=== PATIENT | female | born 1965 | race Caucasian/White ===

== ENCOUNTER 2018-07-10 17:32 | Emergency (ER) | payer MEDICARE, OTHER ==
[~2018-07-10] VITALS: Ht 167.6 cm; Wt 90.7 kg
[2018-07-10] MEDS ORDERED: ONDANSETRON 4 MG/2 ML (SDV) Z0FRAN ONE (17:56)
[2018-07-10] MEDS ORDERED: cloNIDine 0.1 MG (CATAPRES) TAB PO STA (18:04)
--- NOTE | 2018-07-10 18:06 | ED General ---
General Chief Complaint: Glucose Problems Stated Complaint: HYPOGYLCEMIA; DIALYSIS History of Present Illness Date Seen by Provider: Jul 10, 2018 Time Seen by Provider: 17:50 This is a 52-year-old female with a history of hypertension, end-stage renal disease on hemodialysis Saturday and Saturday with the last session being yesterday, also postop day #2 status post right upper extremity dialysis fistula revision, brought to the emergency department by EMS for hypoglycemia. She was on the floor when they found her but it appeared that she had slid out of her chair and patient denies any pain or suspected injury at this time. Accu -Chek was "low" and patient was administered D50, blood glucose at recheck was 110 per EMS. Upon arrival in the emergency department repeat Accu-Chek is 40 and she is given another amp of D50. Her only symptom is nausea, she denies headache or chest pain or difficulty breathing although she is wearing nasal cannula oxygen upon arrival as well. Patient has a chronic right lower extremity amputation, no focal weakness, numbness, or tingling, no visual change. Patient does remember eating an egg for breakfast, otherwise she is not aware of why her blood glucose would be so low today. She was significantly hypertensive as well according to EMS, she is wearing a clonidine patch on her left shoulder however it was supposed to have been changed today. We removed the patch upon arrival. She feels that her surgical site is improving appropriately, the left chest wall dialysis port is not bothering her. Allergies and Home Medications Allergies Coded Allergies: Penicillins (Verified Allergy, Severe, HIVES, 07/10/18) Patient Home Medication List Home Medication List Reviewed: Yes Review of Systems Review of Systems Constitutional: no symptoms reported EENTM: no symptoms reported Respiratory: no symptoms reported Cardiovascular: no symptoms reported Gastrointestinal: see HPI Genitourinary: no symptoms reported Musculoskeletal: no symptoms reported Skin: no symptoms reported Psychiatric/Neurological: No Symptoms Reported Hematologic/Lymphatic: No Symptoms Reported Immunological/Allergic: no symptoms reported Past Pqkwnkz-Bbvana-Pzuevo Hx Patient Social History Recent Foreign Travel: No Contact w/Someone Who Travel: No Physical Exam Vital Signs Vital Signs - First Documented 07/10/18 17:50 Temp 97.2 Pulse 92 Resp 16 B/P (MAP) 220/94 (136) Pulse Ox 100 O2 Delivery Room Air Capillary Refill : Height, Weight, BMI Height: '" Weight: lbs. oz. kg; BMI Method: General Appearance: No Apparent Distress Eyes: Bilateral Eye PERRL, Bilateral Eye EOMI HEENT: Other (edentulous, moist mucous membranes) Neck: Non Tender, Supple Respiratory: Lungs Clear, Other (left chest wall port without inflammatory change other than minimally tender, no drainage, no fluctuance) Cardiovascular: Regular Rate, Rhythm, Normal Peripheral Pulses (right femoral pulses intact and symmetrical with contralateral side) Gastrointestinal: Non Tender, Soft Back: No Vertebral Tenderness Extremity: Other (right upper extremity surgical site still with Steri-Strips in place, no surrounding inflammatory changes, no significant tenderness) Neurologic/Psychiatric: Alert, Oriented x3, No Motor/Sensory Deficits, cut off tender glass II- XII Norm as Tested Skin: Cool, Damp Progress/Results/Core Measures Suspected Sepsis SIRS Temperature: Pulse: Respiratory Rate: Laboratory Tests 07/10/18 17:56: White Blood Count 7.3 Blood Pressure / Mean: Laboratory Tests 07/10/18 17:56: Creatinine 4.65H, Platelet Count 286, Total Bilirubin 0.3 Results/Orders Lab Results Laboratory Tests Test 07/10/18 17:56 07/10/18 18:01 07/10/18 18:42 Range/Units White Blood Count 7.3 4.3-11.0 10^3/uL Red Blood Count 4.13 L 4.35-5.85 10^6/uL Hemoglobin 12.5 11.5-16.0 G/DL Hematocrit 40 35-52 % Mean Corpuscular Volume 97 80-99 FL Mean Corpuscular Hemoglobin 30 25-34 PG Mean Corpuscular Hemoglobin Concent 31 L 32-36 G/DL Red Cell Distribution Width 13.8 10.0-14.5 % Platelet Count 286 130-400 10^3/uL Mean Platelet Volume 9.1 7.4-10.4 FL Neutrophils (%) (Auto) 73 42-75 % Lymphocytes (%) (Auto) 21 12-44 % Monocytes (%) (Auto) 6 0-12 % Eosinophils (%) (Auto) 0 0-10 % Basophils (%) (Auto) 0 0-10 % Neutrophils # (Auto) 5.3 1.8-7.8 X 10^3 Lymphocytes # (Auto) 1.5 1.0-4.0 X 10^3 Monocytes # (Auto) 0.4 0.0-1.0 X 10^3 Eosinophils # (Auto) 0.0 0.0-0.3 10^3/uL Basophils # (Auto) 0.0 0.0-0.1 10^3/uL Sodium Level 140 135-145 MMOL/L Potassium Level 5.4 H 3.6-5.0 MMOL/L Chloride Level 98 98-107 MMOL/L Carbon Dioxide Level 23 21-32 MMOL/L Anion Gap 19 H 5-14 MMOL/L Blood Urea Nitrogen 36 H 7-18 MG/DL Creatinine 4.65 H 0.60-1.30 MG/DL Estimat Glomerular Filtration Rate 10 BUN/Creatinine Ratio 8 Glucose Level 57 *L 70-105 MG/DL Calcium Level 9.4 8.5-10.1 MG/DL Corrected Calcium 9.0 8.5-10.1 MG/DL Magnesium Level 2.1 1.8-2.4 MG/DL Total Bilirubin 0.3 0.1-1.0 MG/DL Aspartate Amino Transf (AST/SGOT) 16 5-34 U/L Alanine Aminotransferase (ALT/SGPT) < 5 0-55 U/L Alkaline Phosphatase 124 40-136 U/L Troponin T 49 H <=10 NG/L Total Protein 8.1 6.4-8.2 GM/DL Albumin 4.5 3.2-4.5 GM/DL Glucometer 44 *L 87 70-110 MG/DL My Orders Orders - TRISHA MATAMOROS T DO Ekg Tracing (07/10/18 18:01) Cbc With Automated Diff (07/10/18 18:01) Comprehensive Metabolic Panel (07/10/18 18:01) Magnesium (07/10/18 18:01) Chest 1 View Ap/Pa Only (07/10/18 18:01) D50w (Emergency) Syringe (Dextrose 50% 5 (07/10/18 18:15) Clonidine Tablet (Catapres Tablet) (07/10/18 18:04) Labetalol Injection (Normodyne Injection (07/10/18 18:15) Ondansetron Injection (Zofran Injectio (07/10/18 18:30) Medications Given in ED Current Medications Medications Dose Ordered Sig/Jose M Route Start Time Stop Time Status Last Admin Dose Admin Dextrose 25 ml ONCE ONCE IV 07/10/18 18:15 07/10/18 18:16 DC 07/10/18 18:05 25 ML Labetalol HCl 10 mg ONCE ONCE IV 07/10/18 18:15 07/10/18 18:16 DC 07/10/18 18:12 10 MG Ondansetron HCl 4 mg ONCE ONCE IVP 07/10/18 18:30 07/10/18 18:31 DC 07/10/18 17:58 4 MG Vital Signs/I&O 07/10/18 07/10/18 17:50 19:00 Temp 97.2 Pulse 92 78 Resp 16 17 B/P (MAP) 220/94 (136) 178/59 (98) Pulse Ox 100 99 O2 Delivery Room Air Room Air Capillary Refill : Progress Note #1: Progress Note This is a 52-year-old female with hypertension and end-stage renal disease on hemodialysis also postop day #2 status post right upper extremity dialysis fistula revision here for hypoglycemia and hypertension. I will give an oral dose of clonidine and a low-dose of IV labetalol. We will evaluate for physiologic stressor as an etiology of her hypoglycemia including sepsis or AMI. She is grossly neurologically intact, denies a headache and there is no sign of head trauma, we will defer head CT at this time. Patient will require admission given the recurrent drop in blood glucose and for stabilization of blood pressure. Progress Note #2: Progress Note Repeat Accu-Chek was in the 80s, patient was given peanut butter and crackers. We will continue to monitor. I recommended admission to patient and family, they request transfer to [facility] as patient has been admitted there multiple times in the past. I have paged their transfer line at about 7:00 PM and await callback. Progress Note #3: Progress Note Patient accepted for transfer to [facility] by hospitalist on-call Dr. Colon just prior to 7:45 PM. ECG EKG : Comment 1525: Normal sinus rhythm rate of 90. Nonspecific T-wave flattening in lead aVL. Critical Care Note Critical Care Start Time: 18:15 Stop Time: 18:50 Total Time (minutes) 35 Progress Rectal care time is exclusive of time spent on separately billable procedures. Rest to multiple organ systems from hypoglycemia and hypertensive urgency. Administration of intravenous vasoactive medications, interpretation of lab results, imaging, EKG, frequent reassessments of clinical status, blood pressure , blood glucose. Departure Impression Primary Impression: Hypoglycemia Additional Impressions: Hypertensive urgency ESRD (end stage renal disease) on dialysis Elevated troponin Disposition: 02 XFER SHT-TRM HOSP Condition: Stable (guarded) Transfer Time Spoke to Accepting Phy: 19:45 Transfer Facility: [facility], accepted by Dr. Colon Method of Transfer: EMS Departure-Patient Inst. Referrals: NO,LOCAL PHYSICIAN (PCP) Primary Care Physician TRISHA MATAMOROS DO Jul 10, 2018 18:06
[2018-07-10] MEDS ORDERED: DEXTROSE 50% 50 ML (IMS) SYR IV ONE (18:15)
[2018-07-10] MEDS ORDERED: LABETALOL HCL 20 MG/4 ML VIAL IV ONE (18:15)
[2018-07-10 18:20] LABS: HEMATOCRIT 40 % (35-52); HEMOGLOBIN 12.5 G/DL (11.5-16.0); MEAN CORPUSCULAR HEMOGLOBIN 30 PG (25-34); MEAN CORPUSCULAR VOLUME 97 FL (80-99); WHITE BLOOD COUNT 7.3 10^3/uL (4.3-11.0)
[2018-07-10 18:21] LABS: BASOPHILS % (AUTO) 0 % (0-10); EOSINOPHILS % (AUTO) 0 % (0-10); LYMPHOCYTES # (AUTO) 1.5 X 10^3 (1.0-4.0); LYMPHOCYTES % (AUTO) 21 % (12-44); MEAN CORPUSCULAR HGB CONC 31 G/DL (32-36); MEAN PLATELET VOLUME 9.1 FL (7.4-10.4); MONOCYTES # (AUTO) 0.4 X 10^3 (0.0-1.0); MONOCYTES % (AUTO) 6 % (0-12); NEUTROPHILS # (AUTO) 5.3 X 10^3 (1.8-7.8); NEUTROPHILS % (AUTO) 73 % (42-75); PLATELET COUNT 286 10^3/uL (130-400); RED CELL DISTRIBUTION WIDTH 13.8 % (10.0-14.5)
[2018-07-10] MEDS ORDERED: INSU100I14 (18:25)
[2018-07-10] MEDS ORDERED: TORS100T4 (18:25)
[2018-07-10] MEDS ORDERED: HYDR-3812 (18:25)
[2018-07-10] MEDS ORDERED: CARV12.53 (18:25)
[2018-07-10] MEDS ORDERED: CLON1PAT34 (18:25)
[2018-07-10] MEDS ORDERED: INSU100I10 (18:25)
[2018-07-10] MEDS ORDERED: CARV25TA (18:25)
--- NOTE | 2018-07-10 18:25 | NUR ---
DR MATAMOROS IN TALKING TO PT'S FAMILY AT THIS TIME.
[2018-07-10] MEDS ORDERED: ONDANSETRON 4 MG/2 ML (SDV) Z0FRAN IVP ONE (18:30)
--- NOTE | 2018-07-10 18:35 | Diagnostic Imaging Report ---
INDICATION: Syncope and hypoglycemia. FINDINGS: The heart size is normal. There is a left internal jugular hemodialysis catheter with its tip in the right atrium. Lungs are clear. There is no pleural effusion or pneumothorax. Mediastinum is unremarkable. IMPRESSION: No acute cardiopulmonary abnormality. Dictated by: Dictated on workstation # [id number]
[2018-07-10 18:40] LABS: BUN/CREATININE RATIO 8; CARBON DIOXIDE 23 MMOL/L (21-32); CHLORIDE 98 MMOL/L (98-107); CREATININE SERUM 4.65 MG/DL (0.60-1.30); GFR ESTIMATED 10; POTASSIUM 5.4 MMOL/L (3.6-5.0); SODIUM 140 MMOL/L (135-145)
[2018-07-10 18:42] LABS: BILIRUBIN,TOTAL 0.3 MG/DL (0.1-1.0); CALCIUM 9.4 MG/DL (8.5-10.1); GLUCOSE 57 MG/DL (70-105); MAGNESIUM 2.1 MG/DL (1.8-2.4)
[2018-07-10 18:43] LABS: ALANINE AMINOTRANSFERASE < 5 U/L (0-55); ALBUMIN 4.5 GM/DL (3.2-4.5); ALKALINE PHOSPHATASE 124 U/L (40-136); TOTAL PROTEIN 8.1 GM/DL (6.4-8.2)
--- NOTE | 2018-07-10 18:47 | NUR ---
PEANUT BUTTER AND CRACKERS WITH OJ GIVEN TO PT FOR PROTEIN PER DR VERBAL REQUEST.
[2018-07-10 19:00] VITALS: BP 178/59
[2018-07-10 20:19] VITALS: BP 172/69
[2018-07-10 20:27] VITALS: BP 172/89
== END 2018-07-10 20:34 | disposition short-term general hospital (02) ==
LOC: ER FS 17:36
DX: E11.649 Type 2 diabetes mellitus with hypoglycemia without coma (principal); E11.22 Type 2 diabetes mellitus with diabetic chronic kidney disease; I12.0 Hypertensive chronic kidney disease with stage 5 chronic kidney disease or end stage renal disease; N18.6 End stage renal disease; I16.0 Hypertensive urgency; R79.89 Other specified abnormal findings of blood chemistry; Z99.2 Dependence on renal dialysis; Z88.0 Allergy status to penicillin
CPT/HCPCS: 36415; 71045; 80053; 82962; 83735; 84484; 85025

== ENCOUNTER 2018-07-25 01:24 | Emergency (ER) | payer MEDICARE ==
[~2018-07-25] VITALS: Ht 167.6 cm; Wt 90.7 kg
[~2018-07-25 01:24] MED LIST: CARV12.53; CARV25TA; CLON1PAT34; HYDR-3812; INSU100I10; INSU100I14; TORS100T4
[2018-07-25] MEDS ORDERED: LABETALOL HCL 20 MG/4 ML VIAL IV STA (01:36)
--- NOTE | 2018-07-25 01:36 | ED General ---
General Stated Complaint: DIABETIC EMRG. Source of Information: Patient, EMS History of Present Illness Date Seen by Provider: Jul 25, 2018 Time Seen by Provider: 01:25 This is a 52-year-old female with a history of end-stage renal disease on hemodialysis reportedly on a Saturday schedule, diabetes, hypertension, here by EMS for hypoglycemia. EMS reports getting to the scene and finding patient very diaphoretic, her blood glucose read "low". They gave her glucagon and wall obtaining an IV patient began to become more alert and told him to stop. They had placed a peripheral IV, gave her an amp of D50, and started a liter of saline. Upon arrival patient is more awake they state. His pain or shortness of breath or headache at this time. She is oriented 3 and moving all 4 extremities however she is still somewhat slow to respond to questions and as such history may be limited. Allergies and Home Medications Allergies Coded Allergies: Penicillins (Verified Allergy, Severe, HIVES, 07/25/18) Patient Home Medication List Home Medication List Reviewed: Yes Review of Systems Review of Systems Constitutional: see HPI EENTM: no symptoms reported Respiratory: no symptoms reported Cardiovascular: no symptoms reported Gastrointestinal: no symptoms reported Genitourinary: no symptoms reported Musculoskeletal: no symptoms reported Skin: no symptoms reported Psychiatric/Neurological: No Symptoms Reported Hematologic/Lymphatic: No Symptoms Reported Immunological/Allergic: no symptoms reported Past Fpvxhub-Xfgvaj-Wetdew Hx Past Med/Social Hx: Reviewed Nursing Past Med/Soc Hx Patient Social History Recent Foreign Travel: No Contact w/Someone Who Travel: No Recent Hopitalizations: Yes (NEW FISTULA ON SATURDAY) Past Medical History Surgeries: Yes (RIGHT BKA, CARPEL TUNNEL) Gallbladder, Hysterectomy, Orthopedic Cardiac: Yes Heart Attack Neurological: No Genitourinary: Yes Dialysis Gastrointestinal: No Endocrine: Yes Diabetes, Insulin dep HEENT: No Cancer: No Psychosocial: No Integumentary: No Physical Exam Vital Signs Vital Signs - First Documented 07/25/18 01:25 Temp 95.4 Pulse 82 Resp 18 B/P (MAP) 211/76 (121) Pulse Ox 98 O2 Delivery Room Air Capillary Refill : Height, Weight, BMI Height: 5'6.00" Weight: 200lbs. oz. 90.415924ti; BMI Method:Stated General Appearance: No Apparent Distress HEENT: Other (pupils are approximately 2-3 mm bilaterally. No conjunctival injection or scleral icterus. Moist mucous membranes. Edentulous.) Neck: Supple Respiratory: Lungs Clear Cardiovascular: Regular Rate, Rhythm, Normal Peripheral Pulses Gastrointestinal: Non Tender, Soft Extremity: Other (chronic right lower extremity BKA) Neurologic/Psychiatric: Oriented x3 (awake but slightly drowsy), No Motor/ Sensory Deficits, test consultant II-XII Norm as Tested Skin: Cool, Other (skin is dry but shirt is damp) Progress/Results/Core Measures Suspected Sepsis SIRS Temperature: Pulse: Respiratory Rate: Laboratory Tests 07/25/18 01:57: White Blood Count 10.1 Blood Pressure / Mean: Laboratory Tests 07/25/18 01:57: Creatinine 5.37H, Platelet Count 250, Total Bilirubin 0.3 Results/Orders Lab Results Laboratory Tests Test 07/25/18 01:30 07/25/18 01:57 07/25/18 03:05 Range/Units Glucometer 102 142 H 70-110 MG/DL White Blood Count 10.1 4.3-11.0 10^3/uL Red Blood Count 4.02 L 4.35-5.85 10^6/uL Hemoglobin 12.0 11.5-16.0 G/DL Hematocrit 38 35-52 % Mean Corpuscular Volume 96 80-99 FL Mean Corpuscular Hemoglobin 30 25-34 PG Mean Corpuscular Hemoglobin Concent 31 L 32-36 G/DL Red Cell Distribution Width 13.4 10.0-14.5 % Platelet Count 250 130-400 10^3/uL Mean Platelet Volume 9.4 7.4-10.4 FL Sodium Level 142 135-145 MMOL/L Potassium Level 4.8 3.6-5.0 MMOL/L Chloride Level 101 98-107 MMOL/L Carbon Dioxide Level 20 L 21-32 MMOL/L Anion Gap 21 H 5-14 MMOL/L Blood Urea Nitrogen 51 H 7-18 MG/DL Creatinine 5.37 H 0.60-1.30 MG/DL Estimat Glomerular Filtration Rate 8 BUN/Creatinine Ratio 9 Glucose Level 175 H 70-105 MG/DL Calcium Level 9.0 8.5-10.1 MG/DL Corrected Calcium 9.0 8.5-10.1 MG/DL Total Bilirubin 0.3 0.1-1.0 MG/DL Aspartate Amino Transf (AST/SGOT) 14 5-34 U/L Alanine Aminotransferase (ALT/SGPT) < 5 0-55 U/L Alkaline Phosphatase 99 40-136 U/L Troponin T 43 H <=10 NG/L Total Protein 7.3 6.4-8.2 GM/DL Albumin 4.0 3.2-4.5 GM/DL My Orders Orders - TRISHA MATAMOROS DO Labetalol Injection (Normodyne Injection (07/25/18 01:36) Ekg Tracing (07/25/18 01:36) Chest 1 View Ap/Pa Only (07/25/18 01:36) Cbc No Diff (07/25/18 01:36) Comprehensive Metabolic Panel (07/25/18 01:36) Troponin T (07/25/18 01:36) Heparin (Central Iv Flush) (Heparin (Mya (07/25/18 01:52) Heparin (Central Iv Flush) (Heparin (Mya (07/25/18 02:00) Medications Given in ED Vital Signs/I&O Capillary Refill : Progress Note : Progress Note Pt was feeling much improved now the glucose is normalized. It remained normalized during a period of observation in the emergency department. No evidence of physiologic stressors such as AMI or sepsis. Patient would like to go home. Family will help her get home. Departure Impression Primary Impression: Hypoglycemia associated with diabetes Disposition: 01 HOME, SELF-CARE Condition: Stable Departure-Patient Inst. Referrals: SHEELA HALL MD (PCP) Primary Care Physician Patient Instructions: HYPOGLYCEMIA TRISHA MATAMOROS DO Jul 25, 2018 01:36
[2018-07-25] MEDS ORDERED: HEParin (CENTRAL IV FLUSH) 500 UNIT/5 ML SYR ONE (01:52)
[2018-07-25] MEDS ORDERED: HEParin (CENTRAL IV FLUSH) 500 UNIT/5 ML SYR IV ONE (02:00)
[2018-07-25 02:16] VITALS: BP 172/63
--- NOTE | 2018-07-25 02:18 | NUR ---
Pt. does have a clonidine patch on her chest.
[2018-07-25 02:22] LABS: MEAN PLATELET VOLUME 9.4 FL (7.4-10.4); RED CELL DISTRIBUTION WIDTH 13.4 % (10.0-14.5); WHITE BLOOD COUNT 10.1 10^3/uL (4.3-11.0)
[2018-07-25 02:28] LABS: POTASSIUM 4.8 MMOL/L (3.6-5.0); SODIUM 142 MMOL/L (135-145)
[2018-07-25 02:29] LABS: ALANINE AMINOTRANSFERASE < 5 U/L (0-55); ALKALINE PHOSPHATASE 99 U/L (40-136); BILIRUBIN,TOTAL 0.3 MG/DL (0.1-1.0); BUN/CREATININE RATIO 9; CARBON DIOXIDE 20 MMOL/L (21-32); CHLORIDE 101 MMOL/L (98-107); CREATININE SERUM 5.37 MG/DL (0.60-1.30); GFR ESTIMATED 8; GLUCOSE 175 MG/DL (70-105)
[2018-07-25 02:30] LABS: TOTAL PROTEIN 7.3 GM/DL (6.4-8.2)
--- NOTE | 2018-07-25 02:48 | NUR ---
Pt. 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 She has a port on the left chest and a fistula on the right arm.
[2018-07-25 03:11] VITALS: BP 150/61
--- NOTE | 2018-07-25 08:18 | Diagnostic Imaging Report ---
INDICATION: Found unresponsive. TIME OF EXAM: 01:43 a.m. Correlation is made with prior study from 07/10/2018. Dialysis catheter has tip overlying the right atrium. The lungs are clear. No infiltrate or failure is seen. No effusion or pneumothorax is detected. IMPRESSION: No acute cardiopulmonary process is detected. Dictated by: Dictated on workstation # [id number]
== END 2018-07-25 03:11 | disposition home or self-care (01) ==
LOC: EDUNIT# 01:24 → ER FS 01:25
DX: E11.649 Type 2 diabetes mellitus with hypoglycemia without coma (principal); E11.22 Type 2 diabetes mellitus with diabetic chronic kidney disease; I12.0 Hypertensive chronic kidney disease with stage 5 chronic kidney disease or end stage renal disease; N18.6 End stage renal disease; I25.2 Old myocardial infarction; Z99.2 Dependence on renal dialysis; Z88.0 Allergy status to penicillin; Z90.710 Acquired absence of both cervix and uterus; Z98.890 Other specified postprocedural states; Z96.651 Presence of right artificial knee joint
CPT/HCPCS: 36415; 71045; 80053; 82962; 84484; 85027; 93005

== ENCOUNTER 2019-01-14 03:00 | Emergency (ER) | payer MEDICARE ==
[~2019-01-14] VITALS: Ht 167.6 cm; Wt 86.2 kg
--- NOTE | 2019-01-14 03:26 | ED General ---
General Chief Complaint: Glucose Problems Stated Complaint: HYPOGLYCEMIA Source of Information: Patient, EMS History of Present Illness Date Seen by Provider: Jan 14, 2019 Time Seen by Provider: 03:01 Initial Comments Patient is a 53-year-old female presenting with complaints of hypoglycemia. The EMS brought her in for low blood sugar and confusion. She has a history of diabetes as well as renal failure. She is on dialysis and dialyzes Saturday. Patient states that she has been having sugars that have been fluctuating dramatically. She has a device that the literature when her sugars get high or too low. Tonight her sugar had gotten down to 40 for the EMS and she got 25 g of dextrose IV. She has an IV in her right external jugular vein. She has had improved mentation since getting the dextrose. She apparently had been very diaphoretic as on her clothes were soaked and she still very cold and went from that. She has no complaints of pain. She does make urine and denies having any pain with urination. She states that she was feeling fine before going to bed. Allergies and Home Medications Allergies Coded Allergies: Penicillins (Verified Allergy, Severe, HIVES, 07/25/18) Patient Home Medication List Home Medication List Reviewed: Yes Review of Systems Review of Systems Constitutional: chills (now in the ED while in wet clothes but not before she had low blood sugar); No fever, No malaise EENTM: no symptoms reported Respiratory: no symptoms reported Cardiovascular: no symptoms reported Gastrointestinal: no symptoms reported Genitourinary: no symptoms reported Musculoskeletal: no symptoms reported Skin: no symptoms reported Past Ixhtpvo-Ihrnvp-Cupecp Hx Past Med/Social Hx: Reviewed Nursing Past Med/Soc Hx Patient Social History Type Used: Cigarettes 2nd Hand Smoke Exposure: No Recent Hopitalizations: Yes (NEW FISTULA ON SATURDAY) Past Medical History Surgeries: Yes (RIGHT BKA, CARPEL TUNNEL) Gallbladder, Hysterectomy, Orthopedic Cardiac: Yes Heart Attack Neurological: No Genitourinary: Yes Dialysis Gastrointestinal: No Endocrine: Yes Diabetes, Insulin dep HEENT: No Cancer: No Psychosocial: No Integumentary: No Physical Exam Vital Signs Vital Signs - First Documented 01/14/19 01/14/19 03:02 04:47 Temp 98.2 Pulse 83 Resp 16 B/P (MAP) 168/63 (98) Pulse Ox 100 O2 Delivery Room Air Capillary Refill : Height, Weight, BMI Height: 5'6.00" Weight: 200lbs. oz. 90.892064qe; BMI Method:Stated General Appearance: No Apparent Distress, Chronically ill Eyes: Bilateral Eye PERRL, Bilateral Eye EOMI HEENT: PERRL/EOMI, Pharynx Normal Neck: Full Range of Motion, Normal Inspection, Non Tender, Supple, Other (EJ in place on right side of neck) Respiratory: Chest Non Tender, Lungs Clear, Normal Breath Sounds, No Accessory Muscle Use, No Respiratory Distress Cardiovascular: Regular Rate, Rhythm, Normal Peripheral Pulses Gastrointestinal: Normal Bowel Sounds, No Pulsatile Mass, Soft, Other (bruit) Extremity: Normal Range of Motion, Non Tender, Other (right upper arm AV fistula present with positive thrill and bruit) Neurologic/Psychiatric: Alert, Oriented x3 Skin: Normal Color, Cool Progress/Results/Core Measures Suspected Sepsis SIRS Temperature: Pulse: Respiratory Rate: Laboratory Tests 01/14/19 03:08: White Blood Count 11.4H Blood Pressure / Mean: Laboratory Tests 01/14/19 03:08: Creatinine 7.46H, Platelet Count 219, Total Bilirubin 0.3 Results/Orders Lab Results Laboratory Tests Test 01/14/19 03:08 01/14/19 03:10 01/14/19 03:26 01/14/19 04:34 Range/Units White Blood Count 11.4 H 4.3-11.0 10^3/uL Red Blood Count 3.98 L 4.35-5.85 10^6/uL Hemoglobin 12.7 11.5-16.0 G/DL Hematocrit 39 35-52 % Mean Corpuscular Volume 98 80-99 FL Mean Corpuscular Hemoglobin 32 25-34 PG Mean Corpuscular Hemoglobin Concent 33 32-36 G/DL Red Cell Distribution Width 14.3 10.0-14.5 % Platelet Count 219 130-400 10^3/uL Mean Platelet Volume 9.7 7.4-10.4 FL Neutrophils (%) (Auto) 82 H 42-75 % Lymphocytes (%) (Auto) 14 12-44 % Monocytes (%) (Auto) 3 0-12 % Eosinophils (%) (Auto) 0 0-10 % Basophils (%) (Auto) 0 0-10 % Neutrophils # (Auto) 9.4 H 1.8-7.8 X 10^3 Lymphocytes # (Auto) 1.6 1.0-4.0 X 10^3 Monocytes # (Auto) 0.4 0.0-1.0 X 10^3 Eosinophils # (Auto) 0.0 0.0-0.3 10^3/uL Basophils # (Auto) 0.0 0.0-0.1 10^3/uL Sodium Level 141 135-145 MMOL/L Potassium Level 4.5 3.6-5.0 MMOL/L Chloride Level 94 L 98-107 MMOL/L Carbon Dioxide Level 24 21-32 MMOL/L Anion Gap 23 H 5-14 MMOL/L Blood Urea Nitrogen 76 H 7-18 MG/DL Creatinine 7.46 H 0.60-1.30 MG/DL Estimat Glomerular Filtration Rate 6 BUN/Creatinine Ratio 10 Glucose Level 204 H 70-105 MG/DL Calcium Level 8.4 L 8.5-10.1 MG/DL Corrected Calcium 8.3 L 8.5-10.1 MG/DL Magnesium Level 2.3 1.6-2.4 MG/DL Total Bilirubin 0.3 0.1-1.0 MG/DL Aspartate Amino Transf (AST/SGOT) 17 5-34 U/L Alanine Aminotransferase (ALT/SGPT) 8 0-55 U/L Alkaline Phosphatase 82 40-136 U/L Total Protein 7.6 6.4-8.2 GM/DL Albumin 4.1 3.2-4.5 GM/DL Glucometer 177 H 248 H 70-110 MG/DL Urine Color YELLOW Urine Clarity SLT CLOUDY Urine pH 8.0 5-9 Urine Specific [place] 1.010 L 1.016-1.022 Urine Protein 2+ H NEGATIVE Urine Glucose (UA) TRACE H NEGATIVE Urine Ketones NEGATIVE NEGATIVE Urine Nitrite NEGATIVE NEGATIVE Urine Bilirubin NEGATIVE NEGATIVE Urine Urobilinogen 0.2 NORMAL MG/DL Urine Leukocyte Esterase 3+ H NEGATIVE Urine RBC (Auto) 1+ H NEGATIVE Urine RBC NONE /HPF Urine WBC 25-50 H /HPF Urine Squamous Epithelial Cells 10-25 H /HPF Urine Crystals NONE /LPF Urine Bacteria FEW H /HPF Urine Casts NONE /LPF Urine Mucus NONE /LPF Urine Culture Indicated YES My Orders Orders - LEX OSWALD MD Comprehensive Metabolic Panel (01/14/19 03:17) Ua Culture If Indicated (01/14/19 03:17) Ed Iv/Invasive Line Start (01/14/19 03:17) Cbc With Automated Diff (01/14/19 03:17) Magnesium (01/14/19 03:17) Accucheck Stat ONCE (01/14/19 03:17) Urine Culture (01/14/19 03:26) Accucheck Stat ONCE (01/14/19 04:30) Vital Signs/I&O 01/14/19 01/14/19 03:02 04:47 Temp 98.2 Pulse 83 78 Resp 16 18 B/P (MAP) 168/63 (98) 139/57 (84) Pulse Ox 100 94 O2 Delivery Room Air Room Air Capillary Refill : Progress Note #1: Progress Note Will check labs and give pt a snack to help maintain her glucose. She reports she has been having her sugar fluctuating a lot. She is due for dialysis today so she will likely have some electrolyte abnormalities. Provided she is maintaining her glucose will be able to discharge to home so she may still dialyze today and have her check with educational speech language clinician and sales representative business courses about her diabetes and care for her managing fluctuating sugars. Progress Note #2: Progress Note Labs show chronic renal failure consistent with hx and need for dialysis today. No signs for emergent dialysis with her electrolytes. pt is taking po here in ED. Her urine shows some LE and WBC but she has epithelial cells as well. Since she denies dysuria or signs of UTI will wait on culture results instead of s tarting an antibiotic. Provided her glucose is staying up and she is feeling ok she could be released with her to home so she could go to dialysis later today. Progress Note #3: Progress Note Patient's accucheck is still up after eating pudding here in the ED. she remains alert and appropriate. Will discharge to home so she has a chance to get home a nd get her prosthetic leg and supplies to make it back to [facility] for her dialysis at 6 am. They will check with her providers about her glucose monitoring device she wears to alert her to when her sugars are too high or too low as it was not reading correctly today and lead up to this event. It was showing her glucose was 90 when EMS got it less than 40. Departure Impression Primary Impression: Hypoglycemia associated with diabetes Disposition: 01 HOME, SELF-CARE Condition: Improved Departure-Patient Inst. Decision time for Depature: 04:44 Referrals: SHEELA HALL MD (PCP) Primary Care Physician Patient Instructions: Low Blood Sugar in People With Diabetes Add. Discharge Instructions: Check back with your educational speech language clinician and sales representative business courses about your sugars and how they are going up and down so much. They may want to recalibrate your device to monitor your glucose or change it out if it is not reading your sugars correctly. Make sure you are eating small frequent meals to help keep your sugars up at a steady level. All discharge instructions reviewed with patient and/or family. Voiced understanding. LEX OSWALD MD Jan 14, 2019 03:26
[2019-01-14 04:01] LABS: HEMATOCRIT 39 % (35-52); HEMOGLOBIN 12.7 G/DL (11.5-16.0); MEAN CORPUSCULAR HEMOGLOBIN 32 PG (25-34); MEAN CORPUSCULAR HGB CONC 33 G/DL (32-36); MEAN CORPUSCULAR VOLUME 98 FL (80-99); RED CELL DISTRIBUTION WIDTH 14.3 % (10.0-14.5); WHITE BLOOD COUNT 11.4 10^3/uL (4.3-11.0)
[2019-01-14 04:02] LABS: BASOPHILS % (AUTO) 0 % (0-10); EOSINOPHILS % (AUTO) 0 % (0-10); LYMPHOCYTES # (AUTO) 1.6 X 10^3 (1.0-4.0); LYMPHOCYTES % (AUTO) 14 % (12-44); MEAN PLATELET VOLUME 9.7 FL (7.4-10.4); MONOCYTES # (AUTO) 0.4 X 10^3 (0.0-1.0); MONOCYTES % (AUTO) 3 % (0-12); NEUTROPHILS # (AUTO) 9.4 X 10^3 (1.8-7.8); NEUTROPHILS % (AUTO) 82 % (42-75); PLATELET COUNT 219 10^3/uL (130-400)
[2019-01-14 04:03] LABS: CLARITY,URINE SLT CLOUDY; COLOR,URINE YELLOW; GLUCOSE, URINE (UA) TRACE (NEGATIVE); KETONES,URINE NEGATIVE (NEGATIVE); PROTEIN,URINE 2+ (NEGATIVE)
[2019-01-14 04:04] LABS: BACTERIA,URINE FEW /HPF; BILIRUBIN,URINE NEGATIVE (NEGATIVE); LEUKOCYTE ESTERASE ,URINE 3+ (NEGATIVE); NITRITE,URINE NEGATIVE (NEGATIVE); UROBILINOGEN,URINE 0.2 MG/DL (NORMAL); WBC,URINE 25-50 /HPF
[2019-01-14 04:09] LABS: POTASSIUM 4.5 MMOL/L (3.6-5.0)
[2019-01-14 04:10] LABS: CALCIUM 8.4 MG/DL (8.5-10.1); CREATININE SERUM 7.46 MG/DL (0.60-1.30); MAGNESIUM 2.3 MG/DL (1.6-2.4)
[2019-01-14 04:11] LABS: ALBUMIN 4.1 GM/DL (3.2-4.5); BILIRUBIN,TOTAL 0.3 MG/DL (0.1-1.0); TOTAL PROTEIN 7.6 GM/DL (6.4-8.2)
[2019-01-14 04:47] VITALS: BP 139/57
== END 2019-01-14 04:47 | disposition home or self-care (01) ==
LOC: EDUNIT# 03:00 → ER FS 03:08
DX: E11.649 Type 2 diabetes mellitus with hypoglycemia without coma (principal); I25.2 Old myocardial infarction; Z99.2 Dependence on renal dialysis; Z88.0 Allergy status to penicillin; Z89.511 Acquired absence of right leg below knee
CPT/HCPCS: 36415; 80053; 81000; 82962; 83735; 85025; 87088

== ENCOUNTER 2020-06-27 00:25 | Emergency (ER) | payer MEDICARE ==
[~2020-06-27] VITALS: Ht 167.7 cm; Wt 83.9 kg
[~2020-06-27 00:25] MED LIST changes: +ACHD5005; -HYDR-3812
--- NOTE | 2020-06-27 01:51 | ED General ---
General Chief Complaint: Glucose Problems Stated Complaint: LOW BLOOD SUGAR Nursing Triage Note: Patient was brought in via EMS for a blood sugar of 22. EMS started a right EJ and gave an amp of D50. Blood sugar went up to 112. 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 Patient last ate at 6 PM and checked her blood sugar prior to bedtime. She took a 6 unit correction dose of Humalog in addition to her evening Lantus. Post transplant the patient her insulin increased due to prednisone which she is still taking. 50 mg daily. EMS was contacted and was patient's blood sugar was 22. She was given an amp of D50 prior to ED arrival. Patient is alert oriented and without complaint in ED. Timing/Duration: Other Modifying Factors: improves with Other Associated Systoms: Other Allergies and Home Medications Allergies Coded Allergies: Penicillins (Verified Allergy, Severe, HIVES, 07/25/18) Patient Home Medication List Home Medication List Reviewed: Yes Review of Systems Review of Systems Constitutional: see HPI EENTM: see HPI Respiratory: see HPI Cardiovascular: see HPI Gastrointestinal: see HPI Genitourinary: see HPI Musculoskeletal: see HPI Skin: see HPI Psychiatric/Neurological: See HPI Hematologic/Lymphatic: See HPI Immunological/Allergic: see HPI All Other Systems Reviewed Negative Unless Noted: Yes Past Hcbnwkn-Kgsuip-Okivkx Hx Past Med/Social Hx: Reviewed Nursing Past Med/Soc Hx Patient Social History Alcohol Use: Denies Use Smoking Status: Never a Smoker Type Used: Cigarettes 2nd Hand Smoke Exposure: No Recent Infectious Disease Expo: No Recent Hopitalizations: Yes (NEW FISTULA ON SATURDAY) Past Medical History Surgeries: Yes (RIGHT BKA, CARPEL TUNNEL, Kidney Transplant) Gallbladder, Hysterectomy, Orthopedic Respiratory: No Cardiac: Yes Heart Attack, Hypertension Neurological: No Genitourinary: Yes Dialysis Gastrointestinal: No Endocrine: Yes Diabetes, Insulin dep HEENT: No Cancer: No Psychosocial: No Integumentary: No Physical Exam Vital Signs Vital Signs - First Documented 06/27/20 00:28 Temp 37.6 Pulse 78 Resp 18 B/P (MAP) 166/60 (95) Pulse Ox 95 O2 Delivery Room Air Capillary Refill : Less Than 3 Seconds Height, Weight, BMI Height: 5'6.00" Weight: 190lbs. 0oz. [id number]; 29.00 BMI Method:Stated General Appearance: Anxious Eyes: Bilateral Eye Normal Inspection, Bilateral Eye PERRL, Bilateral Eye EOMI HEENT: PERRL/EOMI, Normal ENT Inspection, Pharynx Normal Neck: Supple Respiratory: Lungs Clear Cardiovascular: Regular Rate, Rhythm Neurologic/Psychiatric: Alert, Oriented x3 Progress/Results/Core Measures Suspected Sepsis Recent Fever Within 48 Hours: No Infection Criteria Present: None New/Unexplained Altered Menta: No Sepsis Screen: No Definite Risk SIRS Temperature: Pulse: 78 Respiratory Rate: 18 Blood Pressure 166 /60 Mean: 95 Results/Orders Lab Results Laboratory Tests Test 06/27/20 00:34 06/27/20 01:40 Range/Units Glucometer 101 113 H 70-110 MG/DL Vital Signs/I&O 06/27/20 00:28 Temp 37.6 Pulse 78 Resp 18 B/P (MAP) 166/60 (95) Pulse Ox 95 O2 Delivery Room Air Capillary Refill : Less Than 3 Seconds Blood Pressure Mean: 95 Departure Communication (Admissions) Patient given snack of complex carbs in the ED. Recheck blood sugar greater than 100. Patient instructed not to take correction dose of insulin prior to bedtime and to follow-up with transplant team in the morning for further management of insulin. Return precautions reviewed Impression Primary Impression: Hypoglycemia Disposition: 01 HOME, SELF-CARE Condition: Stable Departure-Patient Inst. Decision time for Depature: 01:53 Referrals: SHEELA HALL MD (PCP/Family) Primary Care Physician Patient Instructions: Low Blood Sugar in People With Diabetes Add. Discharge Instructions: Please avoid taking future correction doses of insulin prior to bedtime. Continue to eat routine meals with regular snacks. Follow-up with your transplant team for further recommendations of insulin management. Return to the ED if new or worsening symptoms. All discharge instructions reviewed with patient and/or family. Voiced understanding. IAN THIBODEAUX DO Jun 27, 2020 01:51
[2020-06-27 01:56] VITALS: BP 154/72
== END 2020-06-27 01:56 | disposition home or self-care (01) ==
LOC: EDUNIT# 00:25 → ER FS 00:28
DX: E10.649 Type 1 diabetes mellitus with hypoglycemia without coma (principal); F41.9 Anxiety disorder, unspecified; I25.2 Old myocardial infarction; Z88.0 Allergy status to penicillin
CPT/HCPCS: 82962; 99283

== ENCOUNTER 2020-08-27 03:26 | Emergency (ER) | payer MEDICARE ==
[~2020-08-27] VITALS: Ht 167.7 cm; Wt 95.2 kg
--- NOTE | 2020-08-27 03:36 | ED General ---
General Stated Complaint: HYPOGLYCEMIA History of Present Illness Date Seen by Provider: Aug 27, 2020 Time Seen by Provider: 03:30 Initial Comments 53-year-old female brought in due to hypoglycemia. Patient was in bed when she started moaning and shaking and acting funny. She would not wake up. She has a history of occasionally having hypoglycemia. When EMS arrived her blood sugar was 31. He was given an amp of D50 in route. Patient feels much better upon arrival. She is alert orientated. Discussed with patient she would like me just check her blood sugar and we will forego any other labs. Patient reports she uses insulin at home. That her last food intake was around 6 PM last night.. Allergies and Home Medications Allergies Coded Allergies: Penicillins (Verified Allergy, Severe, HIVES, 07/25/18) Patient Home Medication List Home Medication List Reviewed: Yes Review of Systems Review of Systems Constitutional: see HPI; No chills, No fever; malaise EENTM: no symptoms reported Respiratory: No cough, No short of breath Cardiovascular: No chest pain, No palpitations Skin: see HPI Psychiatric/Neurological: See HPI Past Ddimvkb-Kwespb-Bctxne Hx Past Med/Social Hx: Reviewed Nursing Past Med/Soc Hx Physical Exam Vital Signs Vital Signs - First Documented 08/27/20 03:26 Temp 35.7 Pulse 78 Resp 16 B/P (MAP) 155/61 (92) Pulse Ox 99 O2 Delivery Room Air Capillary Refill : Height, Weight, BMI Height: '" Weight: lbs. oz. kg; BMI Method: General Appearance: No Apparent Distress HEENT: TMs Normal Respiratory: Lungs Clear, Normal Breath Sounds Cardiovascular: Regular Rate, Rhythm Gastrointestinal: Non Tender, Soft Extremity: Other (right leg BKA with prostesis ) Neurologic/Psychiatric: Alert, Oriented x3 Skin: Normal Color, Warm/Dry Progress/Results/Core Measures Suspected Sepsis SIRS Temperature: Pulse: Respiratory Rate: Blood Pressure / Mean: Results/Orders Lab Results Laboratory Tests Test 08/27/20 03:34 08/27/20 04:01 08/27/20 04:29 08/27/20 04:57 Range/Units Glucometer 41 *L 40 *L 49 *L 65 L 70-110 MG/DL Test 08/27/20 05:28 08/27/20 05:45 Range/Units Glucometer 120 H 106 70-110 MG/DL My Orders Orders - TOI RIVERA DO Accucheck Stat ONCE (08/27/20 03:56) Accucheck Prn DAILY PRN (08/27/20 03:57) D50w (Emergency) Syringe (Dextrose 50% 5 (08/27/20 05:15) Medications Given in ED Current Medications Medications Dose Ordered Sig/Jose M Route Start Time Stop Time Status Last Admin Dose Admin Dextrose 25 ml ONCE ONCE IV 08/27/20 05:15 08/27/20 05:16 DC 08/27/20 05:10 25 ML Vital Signs/I&O 08/27/20 08/27/20 03:26 05:55 Temp 35.7 36.7 Pulse 78 79 Resp 16 16 B/P (MAP) 155/61 (92) 147/60 Pulse Ox 99 99 O2 Delivery Room Air Room Air Capillary Refill : Progress Note : Progress Note Patient's blood sugar stabilized between 70-120 which is in the normal range. Patient was ready to be discharged home. Patient works from home so he will be with her throughout the day to continue to help monitor her. Patient was stable upon discharge Departure Impression Primary Impression: Hypoglycemia associated with diabetes Disposition: HOME, SELF-CARE Condition: Stable Departure-Patient Inst. Patient Instructions: Low Blood Sugar in People With Diabetes, How to Keep Track of Your Blood Sugar Add. Discharge Instructions: follow up with your primary care provider next week TOI RIVERA DO Aug 27, 2020 03:35
[2020-08-27] MEDS ORDERED: DEXTROSE 50% 50 ML (IMS) SYR IV ONE (05:15)
[2020-08-27 05:55] VITALS: BP 147/60
== END 2020-08-27 05:55 | disposition home or self-care (01) ==
LOC: EDUNIT# 03:26 → ER FS 03:31
DX: E11.649 Type 2 diabetes mellitus with hypoglycemia without coma (principal); Z97.13 Presence of artificial right leg (complete) (partial); Z88.0 Allergy status to penicillin
CPT/HCPCS: 82962

== ENCOUNTER 2020-08-31 12:12 | Emergency (ER) | payer MEDICARE ==
[~2020-08-31] VITALS: Ht 167.7 cm; Wt 90.9 kg
[~2020-08-31 12:12] MED LIST changes: -CARV25TA; +CARV25TA PO; +GLUCAGON EMERGENCY 1 MG/KIT ONE
[2020-08-31] MEDS ORDERED: GLUCAGON EMERGENCY 1 MG/KIT IM STA (12:17)
[2020-08-31] MEDS ORDERED: DEXTROSE 50% 50 ML (IMS) SYR IV STA (12:18)
--- NOTE | 2020-08-31 12:26 | ED General ---
General Stated Complaint: HYPOGLYCEMIA Source of Information: Patient, Spouse History of Present Illness Date Seen by Provider: Aug 31, 2020 Time Seen by Provider: 12:13 Initial Comments 54-year-old female presenting with decreased blood sugar from home. At 730 this morning her sugar was reportedly 214. She does take Humalog insulin. She states that she ate an egg and some sausage for breakfast. She states that that is her normal breakfast. She has had no nausea or vomiting. There is no diarrhea or pain with urination. She recently had a kidney transplant in May. She had a low blood sugar last week as well. She has been getting shots weekly to help with her immune system per the . That has been affecting her insulin and blood sugars recently. They tried to drink some sugar and orange juice at home but it was not helping with her sugar levels so the drove her here from home. On arrival her glucose was 28. She is alert and talking, answering questions. She is slow to answer questions but is able to answer. Allergies and Home Medications Allergies Coded Allergies: Penicillins (Verified Allergy, Severe, HIVES, 07/25/18) Home Medications Amlodipine Besylate 10 Mg Tablet, 10 MG PO DAILY, (Reported) Last Action: New Order Aspirin 81 Mg Tablet.dr, 81 MG PO DAILY, (Reported) Last Action: New Order Carvedilol 25 Mg Tablet, 25 MG PO BID, (Reported) Last Action: Edited Furosemide 20 Mg Tablet, 20 MG PO DAILY, (Reported) Last Action: New Order Glucagon,Human Recombinant 1 Mg Vial, 1 MG IJ ONCE PRN for HYPOGLYCEMIA Prescribed by: LEX OSWALD on 08/31/20 1324 Metoclopramide HCl 10 Mg Tablet, 10 MG PO ACHS, (Reported) Last Action: New Order Pantoprazole Sodium 40 Mg Tablet.dr, 40 MG PO BID, (Reported) Last Action: New Order Prednisone 5 Mg Tablet, 5 MG PO DAILY, (Reported) Last Action: New Order Patient Home Medication List Home Medication List Reviewed: Yes Review of Systems Review of Systems Constitutional: No fever EENTM: no symptoms reported Respiratory: no symptoms reported Cardiovascular: no symptoms reported Gastrointestinal: No diarrhea, No nausea, No vomiting Genitourinary: no symptoms reported Musculoskeletal: no symptoms reported Skin: no symptoms reported Psychiatric/Neurological: Other (slow to answer) Past Beawyog-Vorfkp-Xacxzg Hx Past Med/Social Hx: Reviewed Nursing Past Med/Soc Hx Patient Social History Type Used: Cigarettes 2nd Hand Smoke Exposure: No Recent Hopitalizations: Yes (NEW FISTULA ON SATURDAY) Seasonal Allergies Seasonal Allergies: No Past Medical History Surgeries: Yes (RIGHT BKA, CARPEL TUNNEL, Kidney Transplant) Gallbladder, Hysterectomy, Orthopedic Respiratory: No Cardiac: Yes Heart Attack, Hypertension Neurological: No Genitourinary: Yes Dialysis Gastrointestinal: No Amputee Endocrine: Yes Diabetes, Insulin dep HEENT: No Cancer: No Psychosocial: No Integumentary: No Blood Disorders: No Physical Exam Vital Signs Vital Signs - First Documented 08/31/20 12:13 Temp 35.9 Pulse 76 Resp 16 B/P (MAP) 174/56 (95) Pulse Ox 99 O2 Delivery Room Air Capillary Refill : Height, Weight, BMI Height: 5'6.00" Weight: 190lbs. 0oz. 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, Other (slow to respond) Skin: Normal Color, Warm/Dry Progress/Results/Core Measures Suspected Sepsis SIRS Temperature: Pulse: Respiratory Rate: Laboratory Tests 08/31/20 12:21: White Blood Count 5.9 Blood Pressure / Mean: Laboratory Tests 08/31/20 12:21: Creatinine 1.49H, Platelet Count 233, Total Bilirubin 0.2 Results/Orders Lab Results Laboratory Tests Test 08/31/20 12:16 08/31/20 12:21 08/31/20 12:39 08/31/20 12:50 Range/Units Glucometer 28 *L 58 *L 70-110 MG/DL White Blood Count 5.9 4.3-11.0 10^3/uL Red Blood Count 3.52 L 4.35-5.85 10^6/uL Hemoglobin 10.6 L 11.5-16.0 G/DL Hematocrit 35 35-52 % Mean Corpuscular Volume 99 80-99 FL Mean Corpuscular Hemoglobin 30 25-34 PG Mean Corpuscular Hemoglobin Concent 31 L 32-36 G/DL Red Cell Distribution Width 14.0 10.0-14.5 % Platelet Count 233 130-400 10^3/uL Mean Platelet Volume 10.2 7.4-10.4 FL Immature Granulocyte % (Auto) 2 % Neutrophils (%) (Auto) 86 H 42-75 % Lymphocytes (%) (Auto) 5 L 12-44 % Monocytes (%) (Auto) 6 0-12 % Eosinophils (%) (Auto) 0 0-10 % Basophils (%) (Auto) 1 0-10 % Neutrophils # (Auto) 5.1 1.8-7.8 X 10^3 Lymphocytes # (Auto) 0.3 L 1.0-4.0 X 10^3 Monocytes # (Auto) 0.4 0.0-1.0 X 10^3 Eosinophils # (Auto) 0.0 0.0-0.3 10^3/uL Basophils # (Auto) 0.0 0.0-0.1 10^3/uL Immature Granulocyte # (Auto) 0.1 0.0-0.1 10^3/uL Neutrophils % (Manual) 75 % Lymphocytes % (Manual) 6 % Monocytes % (Manual) 6 % Band Neutrophils 13 % Hypochromasia 1+ Elliptocytes SLIGHT Sodium Level 140 135-145 MMOL/L Potassium Level 5.8 H 3.6-5.0 MMOL/L Chloride Level 110 H 98-107 MMOL/L Carbon Dioxide Level 21 21-32 MMOL/L Anion Gap 9 5-14 MMOL/L Blood Urea Nitrogen 41 H 7-18 MG/DL Creatinine 1.49 H 0.60-1.30 MG/DL Estimat Glomerular Filtration Rate 37 BUN/Creatinine Ratio 28 Glucose Level 45 *L 70-105 MG/DL Calcium Level 9.3 8.5-10.1 MG/DL Corrected Calcium 8.9 8.5-10.1 MG/DL Total Bilirubin 0.2 0.1-1.0 MG/DL Aspartate Amino Transf (AST/SGOT) 23 5-34 U/L Alanine Aminotransferase (ALT/SGPT) 26 0-55 U/L Alkaline Phosphatase 135 40-136 U/L Total Protein 7.8 6.4-8.2 GM/DL Albumin 4.5 3.2-4.5 GM/DL Urine Color YELLOW Urine Clarity CLEAR Urine pH 5.5 5-9 Urine Specific [place] 1.020 1.016-1.022 Urine Protein NEGATIVE NEGATIVE Urine Glucose (UA) NEGATIVE NEGATIVE Urine Ketones NEGATIVE NEGATIVE Urine Nitrite NEGATIVE NEGATIVE Urine Bilirubin NEGATIVE NEGATIVE Urine Urobilinogen 0.2 < = 1.0 MG/DL Urine Leukocyte Esterase NEGATIVE NEGATIVE Urine RBC (Auto) NEGATIVE NEGATIVE Urine RBC 0-2 /HPF Urine WBC 0-2 /HPF Urine Squamous Epithelial Cells 2-5 /HPF Urine Crystals NONE /LPF Urine Bacteria NEGATIVE /HPF Urine Casts NONE /LPF Urine Mucus NEGATIVE /LPF Urine Culture Indicated NO Test 08/31/20 13:18 Range/Units Glucometer 131 H 70-110 MG/DL My Orders Orders - LEX OSWALD MD Glucagon Emergency Kit (Glucagon Emergen (08/31/20 12:17) Comprehensive Metabolic Panel (08/31/20 12:18) Ua Culture If Indicated (08/31/20 12:18) Ed Iv/Invasive Line Start (08/31/20 12:18) Cbc With Automated Diff (08/31/20 12:18) Glucagon Emergency Kit (Glucagon Emergen (08/31/20 12:11) D50w (Emergency) Syringe (Dextrose 50% 5 (08/31/20 12:18) Accucheck Stat ONCE (08/31/20 12:20) Manual Differential (08/31/20 12:21) Accucheck Stat ONCE (08/31/20 13:16) Vital Signs/I&O 08/31/20 12:13 Temp 35.9 Pulse 76 Resp 16 B/P (MAP) 174/56 (95) Pulse Ox 99 O2 Delivery Room Air Capillary Refill : Progress Note #1: Progress Note Obtain IV access and Accu-Chek. The Accu-Chek came back low at 28. With her history of diabetes and high blood pressure she has poor options for IV access so while the IV was being placed an order for glucagon 1 mg IM was put in the computer. After IV established pt had Dextrose and oral intake ordered to help with bringing up her glucose, but just with the Glucagon it came up to 58 and she was more alert and quicker to respond. Progress Note #2: Progress Note Patient and spouse relate the walk-in medications for helping with the transplant rejection she has been noticing that her sugars have been lower. It seems like she has been more sensitive to the insulin. The labs did not show any acute significant abnormality on the CBC. Her chemistry did show an elevated potassium of 5.8 and her creatinine was 1.49. Patient does take Lasix which will help bring down her potassium. Her repeat Accu-Chek was 131. Counseled on adjusting her sliding scale and checking with her diabetic doctor. She may need a different dosing on her insulin. Also prescribed a dose of glucagon but patient and spouse report that when they had gone to the pharmacy previously about a shot that sounded like glucagon it would still cost them $500 for the part they had to pay. I advised them that they could check with the pharmacy and see if it was covered or how much it might be but I sent it in case it was something they were able to afford. Counseled on follow-up and return precautions. Advised and stressed to work with the diabetic doctor and primary provider about controlling her sugars Departure Impression Primary Impression: Hypoglycemia associated with diabetes Additional Impression: Hyperkalemia Disposition: HOME, SELF-CARE Condition: Improved Departure-Patient Inst. Decision time for Depature: 13:24 Referrals: SHEELA HALL MD (PCP/Family) Primary Care Physician Patient Instructions: Low Blood Sugar in People With Diabetes, Hyperkalemia (DC) Add. Discharge Instructions: Talk with your diabetes doctor about the recurrent episodes of low blood sugar. They may want to adjust your insulin dosing. For now it would be better to let your sugars run a little higher than to have them keep bottoming out. For now on your sliding scale add 100 to each level of your sugar to adjust it up. So if you take a dose of insulin when your sugar is between 200 and 250 then adjust it to take that dose when your sugar is 300 to 350, and do that for each level of your sliding scale. Check with Pharmacy to see if you are able to get a Glucagon Emergency Kit that you could use if your sugar drops again and is not coming up with just juice and peanut butter and crackers. Scripts Glucagon,Human Recombinant (Glucagen) 1 Mg Vial 1 MG IJ ONCE PRN for HYPOGLYCEMIA for 1 Day, #1 VIAL 1 Refill Prov: LEX OSWALD MD 08/31/20 LEX OSWALD MD Aug 31, 2020 12:26
[2020-08-31] MEDS ORDERED: FURO20TA4 PO (12:37)
[2020-08-31] MEDS ORDERED: AMLO-251 PO (12:37)
[2020-08-31] MEDS ORDERED: VALG450T3 (12:37)
[2020-08-31] MEDS ORDERED: PANT40TA52 PO (12:37)
[2020-08-31] MEDS ORDERED: TACR1CAP8 (12:37)
[2020-08-31] MEDS ORDERED: MTC10T PO (12:37)
[2020-08-31] MEDS ORDERED: ASPI-1238 PO (12:37)
[2020-08-31] MEDS ORDERED: PRED5TAB PO (12:37)
[2020-08-31 12:40] LABS: BASOPHILS % (AUTO) 1 % (0-10); EOSINOPHILS % (AUTO) 0 % (0-10); HEMATOCRIT 35 % (35-52); HEMOGLOBIN 10.6 G/DL (11.5-16.0); LYMPHOCYTES # (AUTO) 0.3 X 10^3 (1.0-4.0); LYMPHOCYTES % (AUTO) 5 % (12-44); MEAN CORPUSCULAR HEMOGLOBIN 30 PG (25-34); MEAN CORPUSCULAR HGB CONC 31 G/DL (32-36); MEAN CORPUSCULAR VOLUME 99 FL (80-99); MEAN PLATELET VOLUME 10.2 FL (7.4-10.4); MONOCYTES # (AUTO) 0.4 X 10^3 (0.0-1.0); MONOCYTES % (AUTO) 6 % (0-12); NEUTROPHILS # (AUTO) 5.1 X 10^3 (1.8-7.8); NEUTROPHILS % (AUTO) 86 % (42-75); PLATELET COUNT 233 10^3/uL (130-400); WHITE BLOOD COUNT 5.9 10^3/uL (4.3-11.0)
[2020-08-31 12:57] LABS: BAND NEUTROPHILS 13 %; LYMPHOCYTES % (MANUAL) 6 %; NEUTROPHILS % (MANUAL) 75 %
[2020-08-31 12:58] LABS: ELLIPT/OVALOCYTES SLIGHT; HYPOCHROMASIA 1+; MONOCYTES % (MANUAL) 6 %
[2020-08-31 12:59] LABS: ALBUMIN 4.5 GM/DL (3.2-4.5); BILIRUBIN,TOTAL 0.2 MG/DL (0.1-1.0); CALCIUM 9.3 MG/DL (8.5-10.1); CREATININE SERUM 1.49 MG/DL (0.60-1.30); POTASSIUM 5.8 MMOL/L (3.6-5.0); TOTAL PROTEIN 7.8 GM/DL (6.4-8.2)
[2020-08-31 13:11] LABS: CLARITY,URINE CLEAR; COLOR,URINE YELLOW
[2020-08-31 13:12] LABS: BACTERIA,URINE NEGATIVE /HPF; BILIRUBIN,URINE NEGATIVE (NEGATIVE); GLUCOSE, URINE (UA) NEGATIVE (NEGATIVE); KETONES,URINE NEGATIVE (NEGATIVE); LEUKOCYTE ESTERASE ,URINE NEGATIVE (NEGATIVE); NITRITE,URINE NEGATIVE (NEGATIVE); PH,URINE 5.5 (5-9); PROTEIN,URINE NEGATIVE (NEGATIVE); RBC,URINE 0-2 /HPF; WBC,URINE 0-2 /HPF
[2020-08-31] MEDS ORDERED: GLUC1KIT2 IJ (13:24)
[2020-08-31 13:30] VITALS: BP 185/70
== END 2020-08-31 13:30 | disposition home or self-care (01) ==
LOC: EDUNIT# 12:12 → ER FS 12:14
DX: E11.649 Type 2 diabetes mellitus with hypoglycemia without coma (principal); E87.5 Hyperkalemia; E66.9 Obesity, unspecified; I25.2 Old myocardial infarction; I10 Essential (primary) hypertension; Z68.33 Body mass index [BMI] 33.0-33.9, adult; Z88.0 Allergy status to penicillin; Z79.82 Long term (current) use of aspirin; Z79.52 Long term (current) use of systemic steroids; Z79.4 Long term (current) use of insulin
CPT/HCPCS: 36415; 80053; 81000; 82962; 85007; 85027

== ENCOUNTER 2020-10-22 16:31 | Emergency (ER) | payer MEDICARE ==
[~2020-10-22 16:31] MED LIST changes: +AMLO-251 PO; +ASPI-1238 PO; +FURO20TA4 PO; +GLUC1KIT2 IJ; -GLUCAGON EMERGENCY 1 MG/KIT ONE; +MTC10T PO; +PANT40TA52 PO; +PRED5TAB PO; +TACR1CAP8; +VALG450T3
[2020-10-22] MEDS ORDERED: morphine INJ 10 MG/ML 1ML (SYR OR VIAL) IM STA (16:43)
--- NOTE | 2020-10-22 16:48 | ED Lower Extremity ---
General Chief Complaint: Lower Extremity Stated Complaint: FALL - LEG PAIN Nursing Triage Note: tripped and fell onto R leg/prosthesis. Is a R below knee amputee. Landed on R knee and heard a pop. Is having R knee pain and is unable to put weight on the leg. Came in by EMS. Nursing Sepsis Screen: No Definite Risk Source: patient, EMS History of Present Illness Date Seen by Provider: Oct 22, 2020 Time Seen by Provider: 16:36 Initial Comments 55-year-old female presenting with right leg pain in her right BKA stump. She presents by EMS from local grocery store where she had tripped fell onto her leg. She wears a prosthesis on the right BKA states that she heard a pop when she fell. She was not sure if it was the prosthesis in the ground or something in her knee. She has had severe pain and "bear weight due to pain in the right BKA stump since the fall. She states that this happened about an hour prior to arrival in the ED. She denies any head or losing consciousness. She denies any other injuries. She is a kidney transplant patient follows at [facility] for that. She does have diabetes and that was what prompted the right BKA 5 years ago Onset: just prior to arrival Severity: severe Pain/Injury Location: right knee Method of Injury: fell Modifying Factors: Worse With Movement Allergies and Home Medications Allergies Coded Allergies: Penicillins (Verified Allergy, Severe, HIVES, 07/25/18) Home Medications Amlodipine Besylate 10 Mg Tablet, 10 MG PO DAILY, (Reported) Aspirin 81 Mg Tablet.dr, 81 MG PO DAILY, (Reported) Carvedilol 25 Mg Tablet, 25 MG PO BID, (Reported) Furosemide 20 Mg Tablet, 20 MG PO DAILY, (Reported) Glucagon,Human Recombinant 1 Mg Vial, 1 MG IJ ONCE PRN for HYPOGLYCEMIA Prescribed by: LEX OSWALD on 08/31/20 1324 Metoclopramide HCl 10 Mg Tablet, 10 MG PO ACHS, (Reported) Pantoprazole Sodium 40 Mg Tablet.dr, 40 MG PO BID, (Reported) Prednisone 5 Mg Tablet, 5 MG PO DAILY, (Reported) Patient Home Medication List Home Medication List Reviewed: Yes Review of Systems Constitutional: no symptoms reported EENTM: no symptoms reported Respiratory: no symptoms reported Cardiovascular: no symptoms reported Gastrointestinal: no symptoms reported Genitourinary: no symptoms reported Musculoskeletal: see HPI Skin: No change in color Psychiatric/Neurological: Denies Numbness Past Irbllsn-Yefefv-Hfvcro Hx Past Med/Social Hx: Reviewed Nursing Past Med/Soc Hx Patient Social History Alcohol Use: Denies Use Smoking Status: Current Everyday Smoker Type Used: Cigarettes 2nd Hand Smoke Exposure: No Recent Infectious Disease Expo: No Recent Hopitalizations: Yes (NEW FISTULA ON SATURDAY) Seasonal Allergies Seasonal Allergies: No Past Medical History Surgeries: Yes (Carpal Tunnel, Fistula R arm, amputee-R BKA, back surgery;) Gallbladder, Hysterectomy, Kidney Transplant, Orthopedic Respiratory: No Cardiac: Yes Chronic Edema/Swelling, Heart Attack, Hypertension Neurological: No ANESTHESIOLOGIST History: Hysterectomy Genitourinary: Yes (ESRD, s/p dialysis, kidney transplant 06/02) Renal Failure, Dialysis Gastrointestinal: No Musculoskeletal: Yes Amputee, Chronic Back Pain Endocrine: Yes Diabetes, Insulin dep HEENT: No Cancer: No Psychosocial: No Integumentary: No Blood Disorders: No Physical Exam Vital Signs Vital Signs - First Documented 10/22/20 16:38 Temp 36.7 Pulse 77 Resp 16 B/P (MAP) 156/74 (101) Pulse Ox 95 Capillary Refill : Less Than 3 Seconds Height, Weight, BMI Height: 5'6.00" Weight: 190lbs. 0oz. 86.123607ny; 32.00 BMI Method:Stated General Appearance: WD/WN, no apparent distress Knees: right knee pain, right knee soft tissue tenderness, right knee other (No crepitus but she does have tenderness palpation along the right lateral knee and BKA stump. There is no bruising and no break in the skin.) Neurologic/Tendon: normal sensation, normal motor functions Neurologic/Psychiatric: alert, oriented x 3 Skin: normal color, warm/dry Procedures/Interventions Splinting and Joint Reduction : Location: posterior leg splint on right leg Pre-Proc Neuro Vasc Exam: normal Post-Proc Neuro Vasc Exam: normal Progress Placed in a posterior splint to help stabilize the distal femur fracture. Patient was neurovascular intact with prepost splinting. Tolerated procedure well without any immediate complication. Progress/Results/Core Measures Results/Orders Lab Results Laboratory Tests Test 10/22/20 17:35 Range/Units White Blood Count 9.1 4.3-11.0 10^3/uL Red Blood Count 3.70 L 4.35-5.85 10^6/uL Hemoglobin 11.1 L 11.5-16.0 G/DL Hematocrit 35 35-52 % Mean Corpuscular Volume 96 80-99 FL Mean Corpuscular Hemoglobin 30 25-34 PG Mean Corpuscular Hemoglobin Concent 31 L 32-36 G/DL Red Cell Distribution Width 12.9 10.0-14.5 % Platelet Count 234 130-400 10^3/uL Mean Platelet Volume 10.1 7.4-10.4 FL Immature Granulocyte % (Auto) 1 % Neutrophils (%) (Auto) 90 H 42-75 % Lymphocytes (%) (Auto) 5 L 12-44 % Monocytes (%) (Auto) 4 0-12 % Eosinophils (%) (Auto) 0 0-10 % Basophils (%) (Auto) 0 0-10 % Neutrophils # (Auto) 8.2 H 1.8-7.8 X 10^3 Lymphocytes # (Auto) 0.4 L 1.0-4.0 X 10^3 Monocytes # (Auto) 0.4 0.0-1.0 X 10^3 Eosinophils # (Auto) 0.0 0.0-0.3 10^3/uL Basophils # (Auto) 0.0 0.0-0.1 10^3/uL Immature Granulocyte # (Auto) 0.1 0.0-0.1 10^3/uL Neutrophils % (Manual) 95 % Lymphocytes % (Manual) 2 % Monocytes % (Manual) 3 % Prothrombin Time 13.4 12.2-14.7 SEC INR Comment 1.0 0.8-1.4 Activated Partial Thromboplast Time 27 24-35 SEC Sodium Level 142 135-145 MMOL/L Potassium Level 5.1 H 3.6-5.0 MMOL/L Chloride Level 105 98-107 MMOL/L Carbon Dioxide Level 24 21-32 MMOL/L Anion Gap 13 5-14 MMOL/L Blood Urea Nitrogen 42 H 7-18 MG/DL Creatinine 1.87 H 0.60-1.30 MG/DL Estimat Glomerular Filtration Rate 28 BUN/Creatinine Ratio 22 Glucose Level 97 70-105 MG/DL Calcium Level 9.3 8.5-10.1 MG/DL Corrected Calcium 9.1 8.5-10.1 MG/DL Total Bilirubin 0.3 0.1-1.0 MG/DL Aspartate Amino Transf (AST/SGOT) 13 5-34 U/L Alanine Aminotransferase (ALT/SGPT) 10 0-55 U/L Alkaline Phosphatase 82 40-136 U/L Total Protein 7.2 6.4-8.2 GM/DL Albumin 4.2 3.2-4.5 GM/DL My Orders Orders - LEX OSWALD MD Morphine Injection (Morphine Injection (10/22/20 16:43) Knee 3 View Right (10/22/20 16:49) Ed Iv/Invasive Line Start (10/22/20 17:11) Cbc With Automated Diff (10/22/20 17:11) Comprehensive Metabolic Panel (10/22/20 17:11) Protime With Inr (10/22/20 17:11) Partial Thromboplastin Time (10/22/20 17:11) Femur 2 View Right (10/22/20 17:27) Morphine Injection (Morphine Injection (10/22/20 17:28) Ondansetron Injection (Zofran Injectio (10/22/20 17:30) Ns Iv 1000 Ml (Sodium Chloride 0.9%) (10/22/20 17:28) Manual Differential (10/22/20 17:35) Ed Ortho/Other Supplies Order (10/22/20 17:53) Ortho Glass (10/22/20 17:53) Medications Given in ED Current Medications Medications Dose Ordered Sig/Jose M Route Start Time Stop Time Status Last Admin Dose Admin Ondansetron HCl 4 mg ONCE ONCE IVP 10/22/20 17:30 10/22/20 17:31 DC 10/22/20 17:47 4 MG Vital Signs/I&O 10/22/20 10/22/20 16:38 18:58 Temp 36.7 36.8 Pulse 77 72 Resp 16 17 B/P (MAP) 156/74 (101) 123/53 Pulse Ox 95 72 Blood Pressure Mean: 101 Progress Progress Note #1: Progress Note Morphine IM for pain and will obtain x-rays of the stump to look for fracture or bony injury Progress Note #2: Progress Note Patient with complaints of continued pain despite pain medication. Her x-ray does demonstrate comminuted distal femur fracture. Will obtain x-rays of the femur to look for possible fracture. Placed in posterior splint to help stabilize the femur fracture. Obtain labs and IV access to repeat pain medicine. Keep n.p.o. Contact [facility] and see about transfer for orthopedic evaluation and treatment Progress Note #3: Time: 17:33 Progress Note Contacted the [facility] and gave basic information about the patient. He stated that he would call back with the transfer physician and providers to facilitate transfer and care of the patient shortly. In the meantime he did request a face sheet on the patient. Labs were stable on patient with mild renal insufficiency and potassium at upper limit of normal at 5.1. Femur xray that was added on showed only the distal femur fracture. 1815 Dr. Vásquez with [facility] called back along with orthopedics doctor and I reviewed case and details with them. They accepted the patient and will work on arranging placement and call with a bed assignment. Diagnostic Imaging Diagonstic Imaging: Xray Plain Films/CT/US/NM/MRI: knee Comments [facility], [place] NAME: RISA TH[facility]STON [facility] REC#: [id number] PT STATUS: REG ER : 1965 PHYSICIAN: LEX OSWALD MD ADMIT DATE: 10/22/20/ER FS Signed Date of Exam:10/22/20 KNEE 3 VIEW RIGHT INDICATION: Right luknr-mfz-okqh amputation. Patient was walking when she fell on prosthetic leg and heard a pop. Pain and swelling to the right lateral knee. FINDINGS: Four views of the right knee demonstrate a comminuted fracture of the distal femur just above the condyles. IMPRESSION: There is a comminuted fracture of the distal right femur just above the condyles. Dictated by: Dictated on workstation # [id number] Dict: 10/22/20 1710 Trans: 10/22/201725 [facility] [id number] Interpreted by: BHARGAVI SALDANA MD Electronically signed by: BHARGAVI SALDANA MD 10/22/201725 Diagonstic Imaging: Xray Plain Films/CT/US/NM/MRI: femur Comments [facility], [place] NAME: RISA THURSTON [facility] REC#: [id number] PT STATUS: REG ER : 1965 PHYSICIAN: LXE OSWALD MD ADMIT DATE: 10/22/20/ER FS Signed Date of Exam:10/22/20 FEMUR 2 VIEW RIGHT INDICATION: Fell, right knee pain. FINDINGS: Two views of the femur again demonstrate the comminuted fracture of the distal femoral shaft. The hip joint and proximal femur appear normal. IMPRESSION: Comminuted fracture of the distal right femur is again identified. Dictated by: Dictated on workstation # [id number] Dict: 10/22/20 1745 Trans: 10/22/201851 [facility] [id number] Interpreted by: BHARGAVI SALDANA MD Electronically signed by: BHARGAVI SALDANA MD 10/22/201851 Departure Impression Primary Impression: Closed displaced fracture of distal epiphysis of right femur Qualified Codes: S72.441A - Displaced fracture of lower epiphysis (separation) of right femur, initial encounter for closed fracture Additional Impression: Fall Qualified Codes: W19.XXXA - Unspecified fall, initial encounter Disposition: XFER SHT-TRM HOSP Condition: Stable Transfer Transfer Reason: Exceeds level of care Time Spoke to Accepting Phy: 18:16 Transfer Progress Notes discussed with Dr. Lindy Vásquez the transfer physician at [facility] and she accepted pt for transfer. Orthopedics was on the line as well and stated they could help manage her femur fracture. Will likely admit to transplant service. Transfer Facility: [facility] Method of Transfer: EMS Departure-Patient Inst. Referrals: SHEELA HALL MD (PCP/Family) Primary Care Physician LEX OSWALD MD Oct 22, 2020 16:48
--- NOTE | 2020-10-22 17:15 | Diagnostic Imaging Report ---
INDICATION: Right ndnqg-vur-fbti amputation. Patient was walking when she fell on prosthetic leg and heard a pop. Pain and swelling to the right lateral knee. FINDINGS: Four views of the right knee demonstrate a comminuted fracture of the distal femur just above the condyles. IMPRESSION: There is a comminuted fracture of the distal right femur just above the condyles. Dictated by: Dictated on workstation # [id number]
[2020-10-22] MEDS ORDERED: NS IV 1000 ML 1,000 ML IV STA (17:28)
[2020-10-22] MEDS ORDERED: morphine INJ 10 MG/ML 1ML (SYR OR VIAL) IVP STA (17:28)
[2020-10-22] MEDS ORDERED: ONDANSETRON 4 MG/2 ML (SDV) Z0FRAN IVP ONE (17:30)
[2020-10-22 17:40] LABS: HEMATOCRIT 35 % (35-52); HEMOGLOBIN 11.1 G/DL (11.5-16.0); MEAN CORPUSCULAR HEMOGLOBIN 30 PG (25-34); MEAN CORPUSCULAR VOLUME 96 FL (80-99); WHITE BLOOD COUNT 9.1 10^3/uL (4.3-11.0)
[2020-10-22 17:41] LABS: BASOPHILS % (AUTO) 0 % (0-10); EOSINOPHILS % (AUTO) 0 % (0-10); LYMPHOCYTES # (AUTO) 0.4 X 10^3 (1.0-4.0); LYMPHOCYTES % (AUTO) 5 % (12-44); MEAN CORPUSCULAR HGB CONC 31 G/DL (32-36); MEAN PLATELET VOLUME 10.1 FL (7.4-10.4); MONOCYTES # (AUTO) 0.4 X 10^3 (0.0-1.0); MONOCYTES % (AUTO) 4 % (0-12); NEUTROPHILS # (AUTO) 8.2 X 10^3 (1.8-7.8); NEUTROPHILS % (AUTO) 90 % (42-75); PLATELET COUNT 234 10^3/uL (130-400)
--- NOTE | 2020-10-22 17:49 | Diagnostic Imaging Report ---
INDICATION: Fell, right knee pain. FINDINGS: Two views of the femur again demonstrate the comminuted fracture of the distal femoral shaft. The hip joint and proximal femur appear normal. IMPRESSION: Comminuted fracture of the distal right femur is again identified. Dictated by: Dictated on workstation # [id number]
[2020-10-22 17:56] LABS: ALBUMIN 4.2 GM/DL (3.2-4.5); BILIRUBIN,TOTAL 0.3 MG/DL (0.1-1.0); CALCIUM 9.3 MG/DL (8.5-10.1); CREATININE SERUM 1.87 MG/DL (0.60-1.30); TOTAL PROTEIN 7.2 GM/DL (6.4-8.2)
[2020-10-22 18:00] LABS: POTASSIUM 5.1 MMOL/L (3.6-5.0); PROTHROMBIN TIME PATIENT 13.4 SEC (12.2-14.7)
[2020-10-22 18:04] LABS: LYMPHOCYTES % (MANUAL) 2 %; MONOCYTES % (MANUAL) 3 %; NEUTROPHILS % (MANUAL) 95 %
[2020-10-22 18:58] VITALS: BP 123/53
== END 2020-10-22 18:58 | disposition short-term general hospital (02) ==
LOC: EDUNIT# 16:31 → ER FS 16:33
DX: S72.441A Displaced fracture of lower epiphysis (separation) of right femur, initial encounter for closed fracture (principal); E11.22 Type 2 diabetes mellitus with diabetic chronic kidney disease; I12.0 Hypertensive chronic kidney disease with stage 5 chronic kidney disease or end stage renal disease; N18.6 End stage renal disease; I25.2 Old myocardial infarction; G89.29 Other chronic pain; M54.9 Dorsalgia, unspecified; F17.210 Nicotine dependence, cigarettes, uncomplicated; Z89.511 Acquired absence of right leg below knee; Z99.2 Dependence on renal dialysis; Z94.0 Kidney transplant status; Z79.82 Long term (current) use of aspirin; Z79.899 Other long term (current) drug therapy; W01.0XXA Fall on same level from slipping, tripping and stumbling without subsequent striking against object, initial encounter; Y92.512 Supermarket, store or market as the place of occurrence of the external cause
CPT/HCPCS: 29505; 36415; 73552; 73562; 80053; 85007; 85027; 85610; 85730

== ENCOUNTER 2020-12-09 18:17 | Emergency (ER) | payer MEDICARE ==
[~2020-12-09] VITALS: Ht 167 cm; Wt 80.0 kg
[2020-12-09] MEDS ORDERED: DEXTROSE 50% 50 ML (IMS) SYR IV STA (18:26)
[2020-12-09 18:30] LABS: HEMATOCRIT 36 % (35-52); HEMOGLOBIN 11.5 G/DL (11.5-16.0); MEAN CORPUSCULAR HEMOGLOBIN 31 PG (25-34); MEAN CORPUSCULAR VOLUME 95 FL (80-99); WHITE BLOOD COUNT 6.3 10^3/uL (4.3-11.0)
[2020-12-09 18:31] LABS: BASOPHILS % (AUTO) 0 % (0-10); EOSINOPHILS % (AUTO) 0 % (0-10); LYMPHOCYTES # (AUTO) 1.2 X 10^3 (1.0-4.0); LYMPHOCYTES % (AUTO) 19 % (12-44); MEAN CORPUSCULAR HGB CONC 32 G/DL (32-36); MEAN PLATELET VOLUME 8.7 FL (7.4-10.4); MONOCYTES # (AUTO) 0.4 X 10^3 (0.0-1.0); MONOCYTES % (AUTO) 7 % (0-12); NEUTROPHILS # (AUTO) 4.6 X 10^3 (1.8-7.8); NEUTROPHILS % (AUTO) 73 % (42-75); PLATELET COUNT 323 10^3/uL (130-400)
--- NOTE | 2020-12-09 18:34 | ED General ---
General Chief Complaint: Glucose Problems Stated Complaint: BLOOD SUGAR LOW Source of Information: Patient, Caregiver History of Present Illness Date Seen by Provider: Dec 09, 2020 Time Seen by Provider: 18:21 Initial Comments 55-year-old female presents by private vehicle with decreased mental status. On arrival to the ED she had her glucose checked and it was 30. The general mother states that she had not eaten since around 1130 today. She did take her NovoLog with her lunch. However for lunch she only had a sandwich. She did get her first Pfizer Covid vaccine today. She has no complaints otherwise at this point. She states she has no pain. She denies any nausea, vomiting, abdominal pain, pain with urination. She does have kidney disease and had a transplant in May. She recently had a fracture to her prosthesis and right lower extremity where she had a BKA. She had been transferred to [facility] at the time of that fracture and had surgery there. Associated Systoms: No Chest Pain, No Cough; Diaphoresis (now that her sugar is coming back up); No Fever/Chills, No Headaches, No Loss of Appetite, No Nausea/Vomiting, No Seizure, No Shortness of Air, No Syncope, No Weakness Allergies and Home Medications Allergies Coded Allergies: Penicillins (Verified Allergy, Severe, HIVES, 07/25/18) Home Medications Amlodipine Besylate 10 Mg Tablet, 10 MG PO DAILY, (Reported) Aspirin 81 Mg Tablet.dr, 81 MG PO DAILY, (Reported) Carvedilol 25 Mg Tablet, 25 MG PO BID, (Reported) Furosemide 20 Mg Tablet, 20 MG PO DAILY, (Reported) Glucagon,Human Recombinant 1 Mg Vial, 1 MG IJ ONCE PRN for HYPOGLYCEMIA Prescribed by: LEX OSWALD on 08/31/20 1324 Metoclopramide HCl 10 Mg Tablet, 10 MG PO ACHS, (Reported) Pantoprazole Sodium 40 Mg Tablet.dr, 40 MG PO BID, (Reported) Prednisone 5 Mg Tablet, 5 MG PO DAILY, (Reported) Patient Home Medication List Home Medication List Reviewed: Yes Review of Systems Review of Systems Constitutional: see HPI EENTM: no symptoms reported Respiratory: no symptoms reported Cardiovascular: no symptoms reported Gastrointestinal: no symptoms reported Genitourinary: no symptoms reported Musculoskeletal: no symptoms reported Skin: no symptoms reported Psychiatric/Neurological: Other (decreased responsiveness on arrival that improved after an amp of Dextrose infused by IV) Past Mrlhxlh-Srnxdk-Lyffqt Hx Patient Social History Tobacco Use?: No Use of E-Cig and/or Vaping dev: No Substance use?: No Alcohol Use?: No Pt feels they are or have been: No Immunizations Up To Date First/Initial COVID19 Vaccinat: 12/09/20 Seasonal Allergies Seasonal Allergies: No Past Medical History Surgeries: Yes (Carpal Tunnel, Fistula R arm, amputee-R BKA, back surgery;) Gallbladder, Hysterectomy, Kidney Transplant, Orthopedic Respiratory: No Cardiac: Yes Chronic Edema/Swelling, Heart Attack, Hypertension Neurological: No COMPLIANCE MGR History: Hysterectomy Genitourinary: Yes (ESRD, s/p dialysis, kidney transplant 06/02) Renal Failure, Dialysis Gastrointestinal: No Musculoskeletal: Yes Amputee, Chronic Back Pain Endocrine: Yes Diabetes, Insulin dep HEENT: No Cancer: No Psychosocial: No Integumentary: No Blood Disorders: No Physical Exam Vital Signs Vital Signs - First Documented 12/09/20 18:17 Temp 35.7 Pulse 71 Resp 16 B/P (MAP) 132/54 (80) Pulse Ox 98 O2 Delivery Room Air Capillary Refill : Height, Weight, BMI Height: 5'6.00" Weight: 190lbs. 0oz. 86.658536yl; 32.00 BMI Method:Stated General Appearance: Chronically ill HEENT: Pharynx Normal Neck: Non Tender, Supple Respiratory: Chest Non Tender, Lungs Clear, Normal Breath Sounds Cardiovascular: Regular Rate, Rhythm, Normal Peripheral Pulses, Systolic Murmur Gastrointestinal: Normal Bowel Sounds, No Pulsatile Mass, Non Tender, Soft Rectal: Deferred Extremity: Normal Capillary Refill, No Pedal Edema Neurologic/Psychiatric: Alert (after amp of D-50), Oriented x3 (after amp of D- 50) Progress/Results/Core Measures Suspected Sepsis SIRS Temperature: Pulse: Respiratory Rate: Laboratory Tests 12/09/20 18:25: White Blood Count 6.3 Blood Pressure / Mean: Laboratory Tests 12/09/20 18:25: Creatinine 1.36H, Platelet Count 323, Total Bilirubin 0.2 Results/Orders Lab Results Laboratory Tests Test 12/09/20 18:22 12/09/20 18:25 12/09/20 19:10 Range/Units Glucometer 179 H 52 *L 70-110 MG/DL White Blood Count 6.3 4.3-11.0 10^3/uL Red Blood Count 3.73 L 4.35-5.85 10^6/uL Hemoglobin 11.5 11.5-16.0 G/DL Hematocrit 36 35-52 % Mean Corpuscular Volume 95 80-99 FL Mean Corpuscular Hemoglobin 31 25-34 PG Mean Corpuscular Hemoglobin Concent 32 32-36 G/DL Red Cell Distribution Width 12.5 10.0-14.5 % Platelet Count 323 130-400 10^3/uL Mean Platelet Volume 8.7 7.4-10.4 FL Immature Granulocyte % (Auto) 1 % Neutrophils (%) (Auto) 73 42-75 % Lymphocytes (%) (Auto) 19 12-44 % Monocytes (%) (Auto) 7 0-12 % Eosinophils (%) (Auto) 0 0-10 % Basophils (%) (Auto) 0 0-10 % Neutrophils # (Auto) 4.6 1.8-7.8 X 10^3 Lymphocytes # (Auto) 1.2 1.0-4.0 X 10^3 Monocytes # (Auto) 0.4 0.0-1.0 X 10^3 Eosinophils # (Auto) 0.0 0.0-0.3 10^3/uL Basophils # (Auto) 0.0 0.0-0.1 10^3/uL Immature Granulocyte # (Auto) 0.0 0.0-0.1 10^3/uL Sodium Level 142 135-145 MMOL/L Potassium Level 3.6 3.6-5.0 MMOL/L Chloride Level 105 98-107 MMOL/L Carbon Dioxide Level 28 21-32 MMOL/L Anion Gap 9 5-14 MMOL/L Blood Urea Nitrogen 54 H 7-18 MG/DL Creatinine 1.36 H 0.60-1.30 MG/DL Estimat Glomerular Filtration Rate 41 BUN/Creatinine Ratio 40 Glucose Level 172 H 70-105 MG/DL Calcium Level 9.7 8.5-10.1 MG/DL Corrected Calcium 9.5 8.5-10.1 MG/DL Total Bilirubin 0.2 0.1-1.0 MG/DL Aspartate Amino Transf (AST/SGOT) 17 5-34 U/L Alanine Aminotransferase (ALT/SGPT) 11 0-55 U/L Alkaline Phosphatase 77 40-136 U/L Total Protein 7.3 6.4-8.2 GM/DL Albumin 4.3 3.2-4.5 GM/DL My Orders Orders - LEX OSWALD MD Comprehensive Metabolic Panel (12/09/20 18:26) Ed Iv/Invasive Line Start (12/09/20 18:26) Cbc With Automated Diff (12/09/20 18:26) Accucheck Prn (12/09/20 18:26) D50w (Emergency) Syringe (Dextrose 50% 5 (12/09/20 18:26) Vital Signs/I&O 12/09/20 12/09/20 18:17 19:30 Temp 35.7 Pulse 71 68 Resp 16 16 B/P (MAP) 132/54 (80) 163/62 (80) Pulse Ox 98 98 O2 Delivery Room Air Room Air Capillary Refill : Progress Note #1: Progress Note glucose low at 30 on arrival so given D-50 to help raise it up. She quickly became alert, responsive and appropriate. Progress Note #2: Progress Note Labs showed glucose of 172. Her creatinine was elevated 1.36. She is otherwise stable on CBC and chemistry without acute significant abnormality. Accu-Chek at the bedside her sugar was down to 52. She was continue to eat some crackers and drink juice. She was planning on leaving and going straight to get something to eat. Stressed the importance of not taking her insulin with supper tonight and to check her sugar to ensure that it was at least well over 100 prior to taking any Lantus. Departure Impression Primary Impression: Hypoglycemia associated with diabetes Disposition: 01 HOME, SELF-CARE Condition: Stable Departure-Patient Inst. Decision time for Depature: 19:15 Referrals: TATUM SARAVIA (PCP/Family) Primary Care Physician Patient Instructions: Low Blood Sugar, Adult ED Add. Discharge Instructions: Go and eat a meal to help keep your sugar up. Do not take any of your insulin with your evening meal and at bedtime you should check your sugar and see what it is before taking any of your long acting ins ulin. If the sugar is still under 100 you should only take a half dose or hold your Lantus for tonight since your sugar was running low. Check back with clinic for continued concerns All discharge instructions reviewed with patient and/or family. Voiced understanding. LEX OSWALD MD Dec 09, 2020 18:34
[2020-12-09 18:56] LABS: BILIRUBIN,TOTAL 0.2 MG/DL (0.1-1.0); CALCIUM 9.7 MG/DL (8.5-10.1); CREATININE SERUM 1.36 MG/DL (0.60-1.30); POTASSIUM 3.6 MMOL/L (3.6-5.0)
[2020-12-09 18:57] LABS: ALBUMIN 4.3 GM/DL (3.2-4.5); TOTAL PROTEIN 7.3 GM/DL (6.4-8.2)
[2020-12-09 19:30] VITALS: BP 163/62
== END 2020-12-09 19:31 | disposition home or self-care (01) ==
LOC: EDUNIT# 18:17 → ER FS 18:18
DX: E11.649 Type 2 diabetes mellitus with hypoglycemia without coma (principal); E11.22 Type 2 diabetes mellitus with diabetic chronic kidney disease; I12.0 Hypertensive chronic kidney disease with stage 5 chronic kidney disease or end stage renal disease; N18.6 End stage renal disease; I25.2 Old myocardial infarction; G89.29 Other chronic pain; M54.9 Dorsalgia, unspecified; Z99.2 Dependence on renal dialysis; Z94.0 Kidney transplant status; Z79.82 Long term (current) use of aspirin; Z79.899 Other long term (current) drug therapy
CPT/HCPCS: 36415; 80053; 82947; 85025

== ENCOUNTER 2021-05-04 19:06 | Emergency (ER) | payer MEDICARE ==
[~2021-05-04] VITALS: Ht 167 cm; Wt 85.5 kg
--- OUTSIDE RECORDS SUMMARY | 2021-05-04 19:10 | XMS REPORT | Encounter Summary ---
Author Author [facility] Organization [facility] Address Unknown Phone Unavailable Care Team Providers Care Sight Effects Specialist Name Role Phone PCP Unavailable Encounter Details Care Team Description Date Type Department Ad Abdullahi RN 03/23/2021 Telephone [facility] Kidney and Liver Transplant Program [address] [place] [address], [address] [place] [address] Social History Date Tobacco Use Types Packs/Day Years Used 1981 - 1985 Former Smoker 1 4 Smokeless Tobacco: Never Used Comments Alcohol Use Standard Drinks/Week Not Currently 0 (1 standard drink = 0.6 o z pure alcohol) Sex Assigned at Date Recorded Female 10/06/2020 10:04 AM CDT documented as of this encounter Miscellaneous Notes * Telephone Encounter - Ad Abdullahi RN - 03/23/2021 3:17 PM STEAM SETTER Patients labs reviewed with Dr. Rivera. Patient with slight elevation in crea tinine of 1.6. Called patient and she states she is in her normal health. Discus sed with Dr. Rivera and he would like for patient to have allosure drawn and recheck a lab next week. I called patient back and she states she had allosure d rawn today. Will await results from this. Patient will redraw labs next Saturday a t 0615. Patient has no other questions at this time. 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 Elevated serum creatinine documented as of this encounter Results * Renal Panel (03/31/2021 6:15 AM STEAM SETTER) Sodium 140 136 - 145 mEq/L [facility]RL Potassium 4.0 3.4 - 5.1 mEq/L [facility]RL Chloride 107 98 - 107 mEq/L [facility] Carbon Dioxide 26 20 - 31 mEq/L [facility] Anion Gap 7 5 - 17 mmol/L [facility] Anion Gap 7 mmol/L [facility] Calcium 9.4 8.3 - 10.6 mg/dL [facility] Glucose 63 (L) 70 - 100 mg/dL [facility] Albumin 4.5 3.5 - 5.0 g/dL [facility] Blood Urea 43 (H) 9 - 23 mg/dL [facility] Nitrogen Creatinine 1.40 (H) 0.55 - 1.02 mg/dL [facility]RL eGFR Female AA 47.5 (L) 60.0 - 200.0 [facility] mL/min/1.73m*2 eGFR Female 39.2 (L) 60.0 - 200.0 [facility] Non-AA mL/min/1.73m*2 eGFR Male AA 64.0 60.0 - 200.0 [facility] mL/min/1.73m*2 eGFR Male 52.8 (L) 60.0 - 200.0 [facility] Non-AA mL/min/1.73m*2 Phosphorus 4.5 2.4 - 5.1 mg/dL [facility] Specimen Blood - Venous Performing Organization Address City/State/ZIP Code P grace Number [id number] [place], [place] [address] * Tacrolimus (03/31/2021 6:15 AM STEAM SETTER) Tacrolimus 5.1 5.0 - 20.0 ng/mL [facility] Specimen Blood - Venous Performing Organization Address City/[facility]/ZIP Code P grace Number [id number] [place] [phone] 11 * Magnesium (03/31/2021 6:15 AM STEAM SETTER) Magnesium 1.80 1.60 - 2.60 mg/dL [facility] Specimen Blood - Venous Performing Organization Address City/[facility] P grace Number [id number] [place] [phone] 11 * CBC and Diff (manual diff if necessary) (03/31/2021 6:15 AM STEAM SETTER) WBC 6.44 4.00 - 11.00 TH/uL [facility] RBC 3.73 (L) 4.00 - 5.00 mil/uL [facility] Hemoglobin 11.3 (L) 12.0 - 15.0 g/dL [facility] Hematocrit 35 (L) 36 - 45 % [facility] MCV 94 80 - 99 fL [facility] MCH 30 27 - 34 pg [facility] MCHC 32 32 - 36 % [facility] RDW 12.2 9.0 - 14.5 % [facility] Platelet Count 245 140 - 400 Th/uL [facility] MPV 9.6 9.4 - 12.3 fL [facility] Nucleated RBCs 0 0 - 0 /100 WBC [facility] % Neutrophils 79 (H) 45 - 78 % [facility] % Lymphocytes 14 (L) 15 - 47 % [facility] % Monocytes 6 0 - 12 % [facility] % Eosinophils 1 0 - 7 % [facility] % Basophils 1 0 - 2 % [facility] % Imm Grans 1 0 - 1 % [facility] # Granulocytes 5.15 1.70 - 6.80 TH/uL [facility] # Lymphocytes 0.90 (L) 1.00 - 3.30 TH/uL [facility] # Monocytes 0.36 0.20 - 0.90 TH/uL [facility] # Eosinophils 0.03 0.00 - 0.40 TH/uL [facility] # Basophils 0.03 0.00 - 0.10 TH/uL [facility] Specimen Blood - Venous Performing Organization Address City/[facility] Code P grace Number [id number] [place] [phone] documented in this encounter Visit Diagnoses Diagnosis Status post kidney transplant - Primary prison current use of immunosuppress caro drug Elevated serum creatinine Other nonspecific findings on examinati on of blood documented in this encounter
--- OUTSIDE RECORDS SUMMARY | 2021-05-04 19:10 | XMS REPORT | Encounter Summary ---
Author Author [facility] Organization [facility] Address Unknown Phone Unavailable Care Team Providers Care Portal Administrator Name Role Phone PCP Unavailable Encounter Details Care Team Description Date Type Department Matthew Rivera MD [address] [place] [id number] Status post kidney transplant; alf current use of immunosuppressive drug; Encounter for aftercare following kidney transplant; Kidney replaced by transplant [facility] [place] [facility] [address] [facility] [address] [place] [address] Social History Date Tobacco Use Types Packs/Day Years Used 1981 - 1985 Former Smoker 1 4 Smokeless Tobacco: Never Used Comments Alcohol Use Standard Drinks/Week Not Currently 0 (1 standard drink = 0.6 o z pure alcohol) Sex Assigned at Date Recorded Female 10/06/2020 10:04 AM CDT documented as of this encounter Plan of Treatment Care Team Description Date Type Specialty 05/26/2021 Lab Lab 06/23/2021 Lab Lab Matthew Rivera MD [address] [place] [address] 06/29/2021 Office Visit Transplant Order Schedule Name Type Priority Associated Diag noses 1 Occurrences starting 04/07/2021 until 04/07/2022 EXTRA TUBES Lab Routine Status post kid alfonso transplant alf current use of immunosuppressive drug Encounter for aftercare following kidney transplant Kidney replaced by transplant documented as of this encounter Procedures Comments Procedure Name Priority Date/Time Associated Diag nosis URINALYSIS MICROSCOPIC After 04/07/2021 Encount er for aftercare ONLY office 6:13 AM TEACHER INSTRUMENTAL following kidne y visit transplant Kidney replaced by transplant BK VIRUS DNA QT PCR, Routine 04/07/2021 Encounter for aftercare URINE 6:13 AM TEACHER INSTRUMENTAL following kidney transplant Kidney replaced by transplant URINALYSIS REFLEX Routine 04/07/2021 Encounter fo r aftercare 6:13 AM TEACHER INSTRUMENTAL following kidney transplant Kidney replaced by transplant PROTEIN URINE RANDOM Routine 04/07/2021 Encounter for aftercare 6:13 AM TEACHER INSTRUMENTAL following kidney transplant Kidney replaced by transplant EXTRA URINE SPECIMEN IN Routine 04/07/2021 SIMMONS TUBE 6:12 AM TEACHER INSTRUMENTAL TACROLIMUS STAT 04/07/2021 Status post kid alfonso 6:12 AM TEACHER INSTRUMENTAL transplant alf current use of immunosuppressive drug RENAL PANEL STAT 04/07/2021 Status post kid alfonso 6:12 AM TEACHER INSTRUMENTAL transplant watermaster current use of immunosuppressive drug MAGNESIUM STAT 04/07/2021 Status post kid alfonso 6:12 AM TEACHER INSTRUMENTAL transplant watermaster current use of immunosuppressive drug CBC AND DIFF (MANUAL DIFF STAT 04/07/2021 Stat us post kidney IF NECESSARY) 6:12 AM TEACHER INSTRUMENTAL transplant alf current use of immunosuppressive drug documented in this encounter Results * Urinalysis Microscopic Only (04/07/2021 6:13 AM TEACHER INSTRUMENTAL) Microscopic RBC 0-5 0 - 5 /hpf [facility] Urine Microscopic WBC 6-10 (A) 0 - 5 /hpf [facility] Urine Epithelial Absent Absent [facility] Cells Hyaline Cast Absent Absent [facility] Bacteria Absent Absent [facility] Specimen Urine - Urine Performing Organization Address City/State/ZIP Code P grace Number [id number] [place], [place] [address] * Urinalysis Reflex (04/07/2021 6:13 AM TEACHER INSTRUMENTAL) Appearance, Yellow Colorless, Yellow, [facility] Urine Dark Yellow Glucose Urine Negative Negative mg/dL [facility] Bilirubin Urine Negative Negative [facility] Ketones Urine Negative Negative [facility] Specific 1.016 >1.005-<1.030 SLRL [place] Urine Hemoglobin Negative Negative [facility] Urine PH Urine 6.0 5.0 - 8.0 SLRL Protein Urine Negative Negative, Trace [facility] Qual mg/dL Urobilinogen Normal Normal, Negative, [facility] Urine 1.0 EU/dL Nitrite Urine Negative Negative [facility] Leukocyte Positive (A) Negative [facility] Esterase Specimen Urine - Urine Performing Organization [facility] P grace Number [id number] [place] [phone] 11 * Protein Urine Random (04/07/2021 6:13 AM TEACHER INSTRUMENTAL) Creatinine 57.9 mg/dL [facility]RL Urine Protein/Creat 138 0 - 150 mg/g SLRL Ratio Protein Urine 8.0 mg/dL [facility] Quantitative Specimen Urine - Urine Performing [facility] P grace Number [id number] [place] [phone] * BK Virus DNA QT PCR, Urine (04/07/2021 6:13 AM TEACHER INSTRUMENTAL) BK Virus DNA QT 39,000 (H) Not Detected [facility] PCR Urine copies/mL Specimen Urine - Urine Performing [facility] P grace Number [id number] [place] [phone] 11 * Extra Urine Specimen in Simmons Tube (04/07/2021 6:12 AM TEACHER INSTRUMENTAL) RAINBOW DRAW [place] Draw/Extra Tube Hold [facility] HOLD SPECIMENS Specimen Specimen Urine - Urine Clean Catch Performing [facility] P grace Number [id number] [place] [phone] * Renal Panel (04/07/2021 6:12 AM TEACHER INSTRUMENTAL) Sodium 141 136 - 145 mEq/L [facility] Potassium 4.2 3.4 - 5.1 mEq/L [facility] Chloride 109 (H) 98 - 107 mEq/L [facility] Carbon Dioxide 27 20 - 31 mEq/L [facility] Anion Gap 5 5 - 17 mmol/L [facility] Anion Gap 5 mmol/L [facility] Calcium 9.6 8.3 - 10.6 mg/dL [facility] Glucose 56 (L) 70 - 100 mg/dL [facility] Albumin 4.6 3.5 - 5.0 g/dL SL[facility] Blood Urea 55 (H) 9 - 23 mg/dL [facility] Nitrogen Creatinine 1.50 (H) 0.55 - 1.02 mg/dL SL[facility] eGFR Female AA 43.9 (L) 60.0 - 200.0 [facility] mL/min/1.73m*2 eGFR Female 36.2 (L) 60.0 - 200.0 [facility] Non-AA mL/min/1.73m*2 eGFR Male AA 59.1 (L) 60.0 - 200.0 [facility] mL/min/1.73m*2 eGFR Male 48.8 (L) 60.0 - 200.0 [facility] Non-AA mL/min/1.73m*2 Phosphorus 4.0 2.4 - 5.1 mg/dL [facility] Specimen Blood - Venous Performing Organization Address City/[facility] Code P grace Number [id number] [place] [phone] 11 * Tacrolimus (04/07/2021 6:12 AM TEACHER INSTRUMENTAL) Tacrolimus 7.0 5.0 - 20.0 ng/mL [facility] Specimen Blood - Venous Performing Organization Address City/[facility] P grace Number [id number] [place] [phone] 11 * Magnesium (04/07/2021 6:12 AM TEACHER INSTRUMENTAL) Magnesium 1.90 1.60 - 2.60 mg/dL [facility] Specimen Blood - Venous Performing Organization Address City/[facility] P grace Number [id number] [place] [phone] * CBC and Diff (manual diff if necessary) (04/07/2021 6:12 AM TEACHER INSTRUMENTAL) WBC 7.30 4.00 - 11.00 TH/uL [facility] RBC 3.64 (L) 4.00 - 5.00 mil/uL [facility] Hemoglobin 11.2 (L) 12.0 - 15.0 g/dL [facility] Hematocrit 35 (L) 36 - 45 % [facility] MCV 96 80 - 99 fL [facility] MCH 31 27 - 34 pg [facility] MCHC 32 32 - 36 % [facility] RDW 12.4 9.0 - 14.5 % [facility] Platelet Count 247 140 - 400 Th/uL [facility] MPV 9.7 9.4 - 12.3 fL [facility] Nucleated RBCs 0 0 - 0 /100 WBC [facility] % Neutrophils 82 (H) 45 - 78 % [facility] % Lymphocytes 11 (L) 15 - 47 % [facility] % Monocytes 6 0 - 12 % [facility] % Eosinophils 1 0 - 7 % [facility] % Basophils 0 0 - 2 % [facility] % Imm Grans 0 0 - 1 % [facility] # Granulocytes 5.99 1.70 - 6.80 TH/uL [facility] # Lymphocytes 0.81 (L) 1.00 - 3.30 TH/uL [facility] # Monocytes 0.40 0.20 - 0.90 TH/uL [facility] # Eosinophils 0.06 0.00 - 0.40 TH/uL [facility] # Basophils 0.02 0.00 - 0.10 TH/uL [facility] Specimen Blood - Venous Performing Organization Address City/State/ZIP Code P grace Number [id number] [place] [phone] documented in this encounter Visit Diagnoses Diagnosis Status post kidney transplant alf current use of immunosuppress caro drug Encounter for aftercare following kidne y transplant Kidney replaced by transplant documented in this encounter
--- OUTSIDE RECORDS SUMMARY | 2021-05-04 19:10 | XMS REPORT | Encounter Summary ---
Author Author [facility] Organization [facility] Address Unknown Phone Unavailable Care Team Providers Care Marine Firer Name Role Phone PCP Unavailable Encounter Details Care Team Description Date Type Department Matthew Rivera MD [address] [facility] [address] [place] [address] Status post kidney transplant; correction current use of immunosuppressive drug; Elevated serum creatinine 03/31/2021 Lab [facility] [place] [facility] [address] [facility] [address] [place] [address] Social History Date Tobacco Use Types Packs/Day [...] Lab 06/23/2021 Lab Lab Matthew Rivera MD [address] [place] [address] 240 [place] [address] 06/29/2021 Office Visit Transplant documented as of this encounter Procedures Comments Procedure Name Priority Date/Time Associated Diag nosis TACROLIMUS STAT 03/31/2021 Status post kid alfonso 6:15 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 Elevated serum creatinine RENAL PANEL STAT 03/31/2021 Status post kid alfonso 6:15 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 Elevated serum creatinine MAGNESIUM STAT 03/31/2021 Status post kid alfonso 6:15 AM OVERLOCKER transplant correction current use of immunosuppressive drug Elevated serum creatinine CBC AND DIFF (MANUAL DIFF STAT 03/31/2021 Stat us post kidney IF NECESSARY) 6:15 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 Elevated serum creatinine documented in this encounter Results * Renal Panel (03/31/2021 6:15 AM OVERLOCKER) Sodium 140 136 - 145 mEq/L SLRL [...] City/State/ZIP Code P grace Number [id number] [place], [place] [address] * Tacrolimus (03/31/2021 6:15 AM OVERLOCKER) Tacrolimus 5.1 5.0 - 20.0 ng/mL [facility] Specimen Blood - Venous Performing Organization Address City/State/[facility] Code P grace Number [id number] [place], [place] [address] * Magnesium (03/31/2021 6:15 AM OVERLOCKER) Magnesium 1.80 1.60 - 2.60 mg/dL [facility] Specimen Blood - Venous Performing Organization Address City/[facility] Code P grace Number [id number] [place] [address] * CBC and Diff (manual diff if necessary) (03/31/2021 6:15 AM OVERLOCKER) WBC 6.44 4.00 - 11.00 TH/uL SLRL [...] Specimen Blood - Venous Performing Organization Address City/State/[facility] Code P grace Number [id number] [place] [phone] documented in this encounter Visit Diagnoses Diagnosis Status post kidney transplant correction current use of immunosuppress caro drug Elevated serum creatinine Other nonspecific findings on examinati on of blood documented in this encounter
--- OUTSIDE RECORDS SUMMARY | 2021-05-04 19:10 | XMS REPORT | Encounter Summary ---
Author Author [facility] Organization [facility] Address Unknown Phone Unavailable Care Team Providers Care Clay Molder Name Role Phone PCP Unavailable Encounter Details Care Team Description Date Type Department Matthew Rivera MD [address] [place] [address] [address] [place], [place] [id number] 04/26/2021 Telephone [facility] Kidney and Liver Transplant Program [address] [place] [address], [address] [place] [address] Social History Date Tobacco Use Types Packs/Day Years Used 1981 - 1985 Former Smoker 1 4 Smokeless Tobacco: Never Used Comments Alcohol Use Standard Drinks/Week Not Currently 0 (1 standard drink = 0.6 o z pure alcohol) Sex Assigned at Date Recorded Female 10/06/2020 10:04 AM CDT documented as of this encounter Miscellaneous Notes * Telephone Encounter - Priti Harris RN - 04/26/2021 8:51 AM ELEMENTARY PRINCIPAL LVM on patient's phone stating that if her insurance company needs notes, test r esults, and lab results they are to call medical records to get that information . Priti Harris, 04/26/2021 8:52 AM ENTARY PRINCIPAL documented in this encounter Plan of Treatment Care Team Description Date Type Specialty 05/26/2021 Lab Lab 06/23/2021 Lab Lab Matthew Rivera MD [facility] [address] [place] [address] 06/29/2021 Office Visit Transplant documented as of this encounter Visit Diagnoses Not on filedocumented in this encounter
--- OUTSIDE RECORDS SUMMARY | 2021-05-04 19:10 | XMS REPORT | Encounter Summary ---
Author Author [facility] Organization [facility] Address Unknown Phone Unavailable Care Team Providers Care Sas Developer Analyst Name Role Phone PCP Unavailable Encounter Details Care Team Description Date Type Department Dahiana Coehn MD [address] [facility] 240 [place] [address] 03/27/2021 Documentation [facility] Kidney and Liver Transplant Program [address] [place] [address], [address] [place] [address] Social History Date Tobacco Use Types Packs/Day [...] Lab 06/23/2021 Lab Lab Matthew Rivera MD [facility] [address] [address] 06/29/2021 Office Visit Transplant Date/Time Name Type Priority Associated Diag noses 03/23/2021 ALLOSURE Lab Routine documented as of this encounter Procedures Comments Procedure Name Priority Date/Time Associated Diag nosis ALLOSURE Routine 03/23/2021 documented in this encounter Visit Diagnoses Not on filedocumented in this encounter
--- OUTSIDE RECORDS SUMMARY | 2021-05-04 19:10 | XMS REPORT | Encounter Summary ---
Author Author [facility] Organization [facility] Address Unknown Phone Unavailable Care Team Providers Care Sanitarian Aide Name Role Phone PCP Unavailable Encounter Details Care Team Description Date Type Department Morenita Carmona RN 05/04/2021 Telephone [facility] Kidney and Liver Transplant Program [address] [facility], [address] [place], [place] [id number] Social History Date Tobacco Use Types Packs/Day Years Used 1981 - 1985 Former Smoker 1 4 Smokeless Tobacco: Never Used Comments Alcohol Use Standard Drinks/Week Not Currently 0 (1 standard drink = 0.6 o z pure alcohol) Sex Assigned at Date Recorded Female 10/06/2020 10:04 AM CDT documented as of this encounter Miscellaneous Notes * Telephone Encounter - Morenita Carmona RN - 05/04/2021 12:18 PM WOOL BUYER Spoke with Vanna. She is looking for a PCP here at [facility]. I provided her t he phone number to internal medicine clinic [phone]. Morenita Carmona, 04/13 12:19 PM BUYER documented in this encounter Plan of Treatment Care Team Description Date Type Specialty 05/26/2021 Lab Lab 06/23/2021 Lab Lab Matthew Rivera MD [facility] [address] [place] [address] 06/29/2021 Office Visit Transplant documented as of this encounter Visit Diagnoses Not on filedocumented in this encounter
--- OUTSIDE RECORDS SUMMARY | 2021-05-04 19:10 | XMS REPORT | Clinical Summary ---
Author [facility] Address Unknown Phone Unavailable Care Team Providers Care Insurance Verification Clerk Name Role Phone PCP Unavailable Allergies Comments Active Allergy Reactions Severity Noted Date Reports Swelling of the lips Penicillins Rash, Edema Low 12/11/2018 Medications End Date Status Medication Sig Dispensed Refills Start Date Active lancets 33 gauge Misc by 450 each 3 05/14 Miscellaneous 1 route 5 (five) times a day. Active ACCU-CHEK MARK PLUS test Use to check 100 strip 3 strips blood 1 glucoses 4 times daily Active ULTICARE PEN NEEDLE 32 by 200 each 3 gauge x 5/32" pen needles Miscellaneous 1 route daily. Use to inject insulin 4 or more times daily Active carvediloL (COREG) 25 MG Take 1 tablet 0 06/14 tabletIndications: ESRD (25 mg total) 1 on dialysis (HCC) by mouth 2 (two) times a day. Active predniSONE (DELTASONE) 5 Take 1 tablet 0 06/15 MG tablet (5 mg total) 1 by mouth daily. Active amLODIPine (NORVASC) 10 Take 1 tablet 0 MG tablet (10 mg total) 1 by mouth daily. Active sulfamethoxazole-trimetho Take 1 tablet 0 prim (BACTRIM,SEPTRA) by mouth 400-80 mg per tablet daily. Active HUMALOG KWIKPEN INSULIN Inject 1 15 mL 0 100 unit/mL pen Units under 1 the skin 3 (three) times a day with meals. 1 unit for 6 grams of carbs Active acetaminophen (TYLENOL) Take 1 tablet 0 500 MG tablet (500 mg 1 total) by mouth every 6 (six) hours. Active docusate sodium (COLACE) Take 1 0 10/25 100 MG capsule capsule (100 1 mg total) by mouth 2 (two) times a day. Active oxyCODONE (ROXICODONE) 5 Take 1-2 21 tablet 0 0 MG immediate release tablets (5-10 1 tablet mg total) by mouth every 4 (four) hours as needed. Max Daily Dose: 60 mg Active polyethylene glycol Take 1 packet 14 each 0 10/11 (GLYCOLAX) 17 gram packet (17 g total) 1 by mouth daily. Active pantoprazole (PROTONIX) TAKE 1 TABLET 60 tablet 11 40 MG tablet BY MOUTH 1 TWICE DAILY BEFORE BREAKFAST AND DINNER 01/19/2022 Active furosemide (LASIX) 20 MG Take 1 tablet 90 tablet 3 tabletIndications: edema (20 mg total) 1 by mouth daily as needed. Active LANTUS SOLOSTAR U-100 Inject 35 15 mL 0 INSULIN 100 unit/mL (3 Units under 1 mL) pen the skin nightly. Active tacrolimus (PROGRAF) 1 MG 3 mg in the 210 capsule 11 capsuleIndications: AM and 4 mg 1 prevention of kidney in the PM transplant rejection 04/25/2022 Active hydrALAZINE (APRESOLINE) Take 1 tablet 60 tablet 11 50 MG tabletIndications: (50 mg total) 1 hypertension by mouth 2 (two) times a day. Active aspirin 81 MG chewable Chew 1 tablet 30 tablet 11 1 tablet (81 mg total) 1 daily. 04/25/2021 Discontinued (Dose adjustmen t) aspirin 325 MG tablet Take 1 tablet 30 tablet 0 (325 mg 1 total) by mouth daily. 04/25/2021 Discontinued hydrALAZINE (APRESOLINE) Take 0.5 30 tablet 11 0 50 MG tabletIndications: tablets (25 1 hypertension mg total) by mouth 2 (two) times a day. 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 09/11 Elevated serum creatinine 08/17/2020 Acute rejection of kidney transplant 08/16/2020 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 Long-term use of immunosuppressant medication 2020 At risk for infection due to immunosuppression 07/29 Nausea and vomiting 06/24/2020 End stage renal disease 06/24/2020 Encounter for aftercare following kidney transplant 06/24/2020 Hypomagnesemia 06/16/2020 ESRD on hemodialysis 06/13/2020 Encounter for monitoring immunomodulating therapy Postoperative nausea and vomiting 06/13/2020 Renal transplant recipient 06/06/2020 Kidney transplant status, cadaveric 06/03/2020 Preop cardiovascular exam 10/06/2019 Diabetes mellitus type 2, insulin dependent 10/01/19 20 PAD (peripheral artery disease) Obesity (BMI 30-39.9) Hemodialysis status Essential hypertension ESRD on dialysis Anemia of chronic disease Uncontrolled type 2 diabetes mellitus w ith hyperglycemia, with long-term current use of insulin Resolved Problems Problem Noted Date Resolved Date Acute kidney injury 10/06/2020 10/09/2020 Encounters Care Team Description Date Type Specialty Morenita Carmona RN 05/04/2021 Telephone Transplant Jose Mcfarland MD 05/04/2021 Telephone Transplant Mtathew Rivera MD 04/26/2021 Telephone Transplant Dahiana Cohen MD Akhtar, Irme, MD terminal supervisor current use of immunosuppressi ve drug (Primary Dx); Status post kidney transplant; Type 2 diabetes mellitus with chronic kidney disease, with long-term current use of insulin, unspecified CKD stage (HCC) 04/25/2021 Office Visit Transplant Rachell Escobar, ship liner Refill 04/20/2021 Refill Transplant Matthew Rivera MD Status post kidney transplant; FDC current use of immunosuppressive drug; Encounter for aftercare following kidney transplant; Kidney replaced by transplant 04/07/2021 Lab Lab Matthew Rivera MD Status post kidney transplant; 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; Elevated serum creatinine 03/31/2021 Lab Lab Priti Harris RN Medication Dose Change; Lab results 03/31/2021 Telephone Transplant Dahiana Cohen MD 03/27/2021 Documentation Transplant Dahiana Cohen MD Encounter for aftercare following kidney transplant; Kidney replaced by transplant 03/23/2021 Lab Lab Ad Abdullahi RN 03/23/2021 Telephone Transplant Matthew Rivera MD 02/24/2021 Telephone Transplant Dahiana Cohen MD Encounter for aftercare following kidney transplant; Kidney replaced by transplant 02/16/2021 Lab Lab from Last 3 Months Immunizations Name Administration Dates Next Due Influenza QIV (IM) 02/03/2020, 02/19/2015 Pneumococcal 10/08/2015 Polysaccharide 23-Valent Family History Medical History Relation Name Comments Diabetes Father Heart disease Father Hypertension Father Diabetes Maternal Grandfather Heart disease Maternal Grandfather Hypertension Maternal Grandfather Hypertension Maternal Grandmother Diabetes Mother Hypertension Mother Stroke Mother Hypertension Paternal Grandfather Hypertension Paternal Grandmother Relation Name Status Comments Father Maternal Grandfather Maternal Grandmother Mother Paternal Grandfather Paternal Grandmother Social History Date Tobacco Use Types Packs/Day Years Used 1981 - 1985 Former Smoker 1 4 Smokeless Tobacco: Never Used Comments Alcohol Use Standard Drinks/Week Not Currently 0 (1 standard drink = 0.6 o z pure alcohol) Sex Assigned at Date Recorded Female 10/06/2020 10:04 AM CDT Last Filed Vital Signs Reading Time Taken Comments Vital Sign 152/68 04/25/2021 12:24 PM LICENSED EMBALMER SUPERVISOR Blood Pressure 73 04/25/2021 12:24 PM LICENSED EMBALMER SUPERVISOR Pulse 36.8 C (98.2 F) 04/25/2021 12:24 PM LICENSED EMBALMER SUPERVISOR Temperature 16 04/25/2021 12:24 PM LICENSED EMBALMER SUPERVISOR Respiratory Rate 95% 04/25/2021 12:24 PM LICENSED EMBALMER SUPERVISOR Oxygen Saturation - - Inhaled Oxygen Concentration 85.3 kg (188 lb) 01/19/2021 12:52 PM CDT Weight 167.6 cm (5' 6") 04/25/2021 12:24 PM LICENSED EMBALMER SUPERVISOR Height 30.34 01/19/2021 12:52 PM CDT Body Mass Index Plan of Treatment Care Team Description Date Type Specialty 05/26/2021 Lab Lab 06/23/2021 Lab Lab Matthew Rivera MD [facility] [place] [address] 06/29/2021 Office Visit Transplant Health Maintenance Due Date Last Done Comments Diabetes Mellitus 1965 Ophthalmology Exam Diabetes Mellitus Urine 1966 Microalbumin Medicare Annual Wellness 1965 Td/Tdap# 1966 Diabetes Mellitus Foot 1976 Exam Colorectal Screening via 2016 Colonoscopy Zoster Vaccine# (1 of 2) 2016 Pneumococcal Vaccine: 10/07/2016 10/08/2015 Pediatrics (0 to 5 Years) and At-Risk Patients (6 to 64 Years) (2 of 4 - PCV13) COVID-19 Vaccine (3 - 02/01/2021 01/04/2021, Pfizer risk 4-dose 12/09/2020 series) Influenza Vaccine (#1) 2021 02/03/2020, 02/19/2015 Diabetes Mellitus 04/08/2021 10/06/2020, Hemoglobin A1C 12/22/2019, 10/06/2019, Additional history exists Lipid Screening 06/16/2021 06/16/2020, 06/16/2020, 12/22/2019, Additional history exists Mammogram Screening 10/21/2021 10/22/2019 Implants Device Identifier Shelf Expiration Date Model / Serial / L ot Implanted Type Area Manufactur er 01/10/2025 [id number] / / [id number] Implant Nail Supra Condylar Strl Non-Tissue Right: Femur DUKE 14mm X 340mm [id number] - Implant TRAUMA [id number] Implanted: Qty: 1 on 10/23/2020 by Paul Arana MD at [facility] [id number] / / Implant Screw T2 Locking 5mm X 70mm Non-Tissue Right: Fem ur DUKE [id number] - [id number] Implant TRAUMA Implanted: Qty: 1 on 10/23/2020 by Paul Arana MD at [facility] [id number] / / Implant Screw T2 Locking 5mm X 80mm Non-Tissue Right: Fem ur DUKE [id number] - [id number] Implant TRAUMA Implanted: Qty: 2 on 10/23/2020 by Paul Arana MD at [facility] [id number] / / Implant Screw T2 Locking 5mm X 85mm Non-Tissue Right: Fem ur DUKE [id number] - [id number] Implant TRAUMA Implanted: Qty: 1 on 10/23/2020 by Paul Arana MD at [facility] [id number] / / Implant Screw T2 Locking 5mm X Non-Tissue Right: Femur DUKE 37.5mm [id number] - [id number] Implant TRAUMA Implanted: Qty: 1 on 10/23/2020 by Paul Arana MD at [facility] [id number] / / Implant Screw T2 Locking 5mm X 40mm Non-Tissue Right: Fem ur DUKE [id number] - [id number] Implant TRAUMA Implanted: Qty: 1 on 10/23/2020 by Paul Arana MD at [facility] Device Identifier Shelf Expiration Date Model / Serial / L ot Explanted Type Area Manufactur er 09/09/2024 [id number] / / [id number] Implant Stent Ureteral Dbl-J Closed Non-Tissue OL YMPUS Tip 6.0fr X 12cm [id number] - Implant ENDOSCOPY [id number] Implanted: Qty: 1 on 06/03/2020 by Rommel Cline MD PhD at [facility] Explanted: Qty: 1 on 07/19/2020 by Asher Pimentel MD [id number] / / Implant Screw T2 Locking 5mm X 65mm Non-Tissue Right: Fem ur DUKE [id number] - [id number] Implant TRAUMA Explanted: Qty: 1 on 10/23/2020 at [facility] Procedures Comments Procedure Name Priority Date/Time Associated Diag nosis URINALYSIS MICROSCOPIC After 04/07/2021 Encount er for aftercare ONLY office 6:13 AM LICENSED EMBALMER SUPERVISOR following kidne y visit transplant Kidney replaced by transplant URINALYSIS REFLEX Routine 04/07/2021 Encounter fo r aftercare 6:13 AM LICENSED EMBALMER SUPERVISOR following kidney transplant Kidney replaced by transplant PROTEIN URINE RANDOM Routine 04/07/2021 Encounter for aftercare 6:13 AM LICENSED EMBALMER SUPERVISOR following kidney transplant Kidney replaced by transplant BK VIRUS DNA QT PCR, Routine 04/07/2021 Encounter for aftercare URINE 6:13 AM LICENSED EMBALMER SUPERVISOR following kidney transplant Kidney replaced by transplant RENAL PANEL STAT 04/07/2021 Status post kid alfonso 6:12 AM LICENSED EMBALMER SUPERVISOR transplant FDC current use of immunosuppressive drug TACROLIMUS STAT 04/07/2021 Status post kid alfonso 6:12 AM LICENSED EMBALMER SUPERVISOR transplant 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 MAGNESIUM STAT 04/07/2021 Status post kid alfonso 6:12 AM LICENSED EMBALMER SUPERVISOR transplant 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 CBC AND DIFF (MANUAL DIFF STAT 04/07/2021 Stat us post kidney IF NECESSARY) 6:12 AM LICENSED EMBALMER SUPERVISOR transplant FDC current use of immunosuppressive drug EXTRA URINE SPECIMEN IN Routine 04/07/2021 SIMMONS TUBE 6:12 AM LICENSED EMBALMER SUPERVISOR RENAL PANEL STAT 03/31/2021 Status post kid alfonso 6:15 AM LICENSED EMBALMER SUPERVISOR transplant 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 Elevated serum creatinine TACROLIMUS STAT 03/31/2021 Status post kid alfonso 6:15 AM LICENSED EMBALMER SUPERVISOR transplant 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 Elevated serum creatinine MAGNESIUM STAT 03/31/2021 Status post kid alfonso 6:15 AM LICENSED EMBALMER SUPERVISOR transplant 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 Elevated serum creatinine CBC AND DIFF (MANUAL DIFF STAT 03/31/2021 Stat us post kidney IF NECESSARY) 6:15 AM LICENSED EMBALMER SUPERVISOR transplant FDC current use of immunosuppressive drug Elevated serum creatinine URINALYSIS REFLEX Routine 03/23/2021 Encounter fo r aftercare 6:06 AM LICENSED EMBALMER SUPERVISOR following kidney transplant Kidney replaced by transplant TACROLIMUS Routine 03/23/2021 Encounter for a ftercare 6:06 AM LICENSED EMBALMER SUPERVISOR following kidney transplant Kidney replaced by transplant RENAL PANEL Routine 03/23/2021 Encounter for a ftercare 6:06 AM LICENSED EMBALMER SUPERVISOR following kidney transplant Kidney replaced by transplant PROTEIN URINE RANDOM Routine 03/23/2021 Encounter for aftercare 6:06 AM LICENSED EMBALMER SUPERVISOR following kidney transplant Kidney replaced by transplant MAGNESIUM Routine 03/23/2021 Encounter for a ftercare 6:06 AM LICENSED EMBALMER SUPERVISOR following kidney transplant Kidney replaced by transplant BK VIRUS DNA QT PCR, Routine 03/23/2021 Encounter for aftercare URINE 6:06 AM LICENSED EMBALMER SUPERVISOR following kidney transplant Kidney replaced by transplant CBC AND DIFF (MANUAL DIFF Routine 03/23/2021 Enco unter for aftercare IF NECESSARY) 6:06 AM LICENSED EMBALMER SUPERVISOR following kidney transplant Kidney replaced by transplant CMV PCR QUANTITATIVE Routine 03/23/2021 Encounter for aftercare 6:06 AM LICENSED EMBALMER SUPERVISOR following kidney transplant Kidney replaced by transplant BK VIRUS DNA QT PCR, Routine 03/23/2021 Encounter for aftercare BLOOD 6:06 AM LICENSED EMBALMER SUPERVISOR following kidney transplant Kidney replaced by transplant EXTRA URINE SPECIMEN IN Routine 03/23/2021 SIMMONS TUBE 6:06 AM LICENSED EMBALMER SUPERVISOR ALLOSURE Routine 03/23/2021 URINALYSIS MICROSCOPIC Routine 02/16/2021 ONLY 6:12 AM CDT URINALYSIS REFLEX Routine 02/16/2021 Encounter fo r aftercare 6:12 AM CDT following kidney transplant Kidney replaced by transplant TACROLIMUS Routine 02/16/2021 Encounter for a ftercare 6:12 AM CDT following kidney transplant Kidney replaced by transplant RENAL PANEL Routine 02/16/2021 Encounter for a ftercare 6:12 AM CDT following kidney transplant Kidney replaced by transplant PROTEIN URINE RANDOM Routine 02/16/2021 Encounter for aftercare 6:12 AM CDT following kidney transplant Kidney replaced by transplant MAGNESIUM Routine 02/16/2021 Encounter for a ftercare 6:12 AM CDT following kidney transplant Kidney replaced by transplant BK VIRUS DNA QT PCR, Routine 02/16/2021 Encounter for aftercare URINE 6:12 AM CDT following kidney transplant Kidney replaced by transplant CBC AND DIFF (MANUAL DIFF Routine 02/16/2021 Enco unter for aftercare IF NECESSARY) 6:12 AM CDT following kidney transplant Kidney replaced by transplant CMV PCR QUANTITATIVE Routine 02/16/2021 Encounter for aftercare 6:12 AM CDT following kidney transplant Kidney replaced by transplant BK VIRUS DNA QT PCR, Routine 02/16/2021 Encounter for aftercare BLOOD 6:12 AM CDT following kidney transplant Kidney replaced by transplant CULTURE, URINE Routine 02/16/2021 6:12 AM CDT from Last 3 Months Results * Urinalysis Microscopic Only (04/07/2021 6:13 AM LICENSED EMBALMER SUPERVISOR) Only the most recent of 2 results within the time period is included. Microscopic RBC 0-5 0 - 5 /hpf [facility] Urine Microscopic WBC 6-10 (A) 0 - 5 /hpf [facility] Urine Epithelial Absent Absent [facility] Cells Hyaline Cast Absent Absent [facility] Bacteria Absent Absent [facility] Specimen Urine - Urine Performing Organization Address City/[facility]/ZIP Code P grace Number [facility] [id number] [place] [id number] * BK Virus DNA QT PCR, Urine (04/07/2021 6:13 AM LICENSED EMBALMER SUPERVISOR) Only the most recent of 3 results within the time period is included. BK Virus DNA QT 39,000 (H) Not Detected [facility] PCR Urine copies/mL Specimen Urine - Urine Performing Organization Address City/[facility] P grace Number [facility] [id number] [place] [phone] [phone] * Urinalysis Reflex (04/07/2021 6:13 AM LICENSED EMBALMER SUPERVISOR) Only the most recent of 3 results within the time period is included. Appearance, Yellow Colorless, Yellow, [facility] Urine Dark Yellow Glucose Urine Negative Negative mg/dL [facility] Bilirubin Urine Negative Negative [facility] Ketones Urine Negative Negative [facility] Specific 1.016 >1.005-<1.030 [facility] [place] Urine Hemoglobin Negative Negative [facility] Urine PH Urine 6.0 5.0 - 8.0 [facility] Protein Urine Negative Negative, Trace [facility] Qual mg/dL Urobilinogen Normal Normal, Negative, [facility] Urine 1.0 EU/dL Nitrite Urine Negative Negative [facility] Leukocyte Positive (A) Negative [facility] Esterase Specimen Urine - Urine Performing Organization Address [facility] P grace Number [facility] [id number] [place] [id number] 11 * Protein Urine Random (04/07/2021 6:13 AM LICENSED EMBALMER SUPERVISOR) Only the most recent of 3 results within the time period is included. Creatinine 57.9 mg/dL [facility] Urine Protein/Creat 138 0 - 150 mg/g [facility] Ratio Protein Urine 8.0 mg/dL [facility] Quantitative Specimen Urine - Urine Performing Organization Address [facility] P grace Number [facility] [id number] [place] [phone] 11 * Extra Urine Specimen in Simmons Tube (04/07/2021 6:12 AM LICENSED EMBALMER SUPERVISOR) Only the most recent of 2 results within the time period is included. RAINBOW DRAW Anton Draw/Extra Tube Hold [facility] HOLD SPECIMENS Specimen Specimen Urine - Urine Clean Catch Performing Organization Address [facility] P grace Number [facility] [id number] [place] [phone] 11 * Tacrolimus (04/07/2021 6:12 AM LICENSED EMBALMER SUPERVISOR) Only the most recent of 4 results within the time period is included. Tacrolimus 7.0 5.0 - 20.0 ng/mL [facility] Specimen Blood - Venous Performing Organization Address [facility] P grace Number [id number] [place] [id number] * Renal Panel (04/07/2021 6:12 AM LICENSED EMBALMER SUPERVISOR) Only the most recent of 4 results within the time period is included. Sodium 141 136 - 145 mEq/L [facility] [...] City/State/ZIP Code P grace Number [facility] [id number] [place] [id number] * Magnesium (04/07/2021 6:12 AM LICENSED EMBALMER SUPERVISOR) Only the most recent of 4 results within the time period is included. Pathologist [facility] Magnesium 1.90 1.60 - 2.60 mg/dL [facility] Specimen Blood - Venous Performing Organization Address City/[facility] P [facility] Number [facility] [id number] [place] [id number] 11 * CBC and Diff (manual diff if necessary) (04/07/2021 6:12 AM LICENSED EMBALMER SUPERVISOR) Only the most recent of 4 results within the time period is included. Pathologist [facility] WBC 7.30 4.00 - 11.00 TH/uL [facility] [...] Specimen Blood - Venous Performing Organization Address City/[facility] Code P grace Number [facility] [id number] [place] [phone] * CMV PCR Quantitative (03/23/2021 6:06 AM LICENSED EMBALMER SUPERVISOR) Only the most recent of 2 results within the time period is included. Pathologist [facility] CMV PCR Not Detected Not Detected IU/mL [facility] Quantitative CMV PCR Not Detected Not Detected LOG [facility] Quantitative-Lo g Specimen Blood - Venous Performing Organization Address City/State/ZIP Code P grace Number [facility] [id number] [id number] * BK Virus DNA QT PCR, Blood (03/23/2021 6:06 AM LICENSED EMBALMER SUPERVISOR) Only the most recent of 2 results within the time period is included. BK Virus DNA QT Not Detected Not Detected [facility] PCR Blood copies/mL Specimen Blood - Venous Performing Organization Address City/[facility]/ZIP Code P grace Number [facility] [id number] [phone] 11 * Culture, Urine (02/16/2021 6:12 AM CDT) Culture Result >100,000 Cfu/ml Mixed [facility] Lab Specimen Urine Performing Organization Address City/State/ZIP Code P grace Number [facility] [address] [place] [address] LABORATORIES [facility] [address] [place] [address] from Last 3 Months Insurance Type Payer Benefit Subscriber ID Effective Phone Address Plan / Dates Group Indemnity [employer] TRANSPLANT [id number] 2020- E CASE RATE Present [address] [place] [address] MEDICARE REPLACEMENT PLAN [employer] [id number] 2017-P [phone] [address] MEDICARE resent [address] [place] [address] Vanna Rebolledo Personal/F Self [id number] [place] (Home) [place] [address] Vanna Rebolledo Personal/F Self [phone] [place] (Home) [place] [id number] Vanna Rebolledo Transplant Self [phone] [place] (Home) [place] [address] Advance Directives For more information, please contact: [phone] Patient Substitute Nurse Explanation Type Date Recorded Health Care Directive Date Inactivated Comments Code Status Date Activated Full Code 10/22/2020 9:47 PM 10/22/2020 8:48 PM Full Code 10/06/2020 11:03 AM 08/18/2020 7:19 PM Full Code 08/16/2020 2:01 PM 06/14/2020 7:57 PM Full Code 06/03/2020 5:47 PM
--- OUTSIDE RECORDS SUMMARY | 2021-05-04 19:10 | XMS REPORT | Encounter Summary ---
Author Author [facility] Organization [facility] Address Unknown Phone Unavailable Care Team Providers Care Curriculum Consultant Name Role Phone PCP Unavailable Reason for Visit * Reason Onset Date Comments Medication Dose Change 03/31/2021 Lab results 03/31/2021 Encounter Details Care Team Description Date Type Department Priti Harris RN Medication Dose Change; Lab results 03/31/2021 Telephone [facility] [address] [place] [address] [address] [place] [address] Social History Date Tobacco Use [...] Telephone Encounter - Priti Harris RN - 03/31/2021 1:23 PM WELDER REPAIR FK 5.[address] Rivera, increase dose from 3/3 to 3/4. Patient v/u a nd will re-check at 0600 04/07. Priti Harris, 03/31/2021 1:24 PM ER REPAIR documented in this encounter Plan of Treatment Care Team Description Date Type Specialty 05/26/2021 Lab Lab 06/23/2021 Lab Lab Matthew Rivera MD [facility] [address] [place] [address] 06/29/2021 Office Visit Transplant documented as of this encounter Results * Renal Panel (04/07/2021 6:12 AM WELDER REPAIR) Sodium 141 136 - 145 mEq/L [facility] [...] Specimen Blood - Venous Performing Organization Address City/[facility]/ZIP Code P garce Number [facility] [id number] [phone] 11 * Tacrolimus (04/07/2021 6:12 AM WELDER REPAIR) Tacrolimus 7.0 5.0 - 20.0 ng/mL [facility] Specimen Blood - Venous Performing Organization Address City/State/[facility] Code P grace Number [facility] [id number] [phone] 11 * Magnesium (04/07/2021 6:12 AM WELDER REPAIR) Magnesium 1.90 1.60 - 2.60 mg/dL [facility] Specimen Blood - Venous Performing Organization Address City/[facility] Code P grace Number [facility] [id number] [place], [place] [address] * CBC and Diff (manual diff if necessary) (04/07/2021 6:12 AM WELDER REPAIR) WBC 7.30 4.00 - 11.00 TH/uL [facility] [...] City/State/ZIP Code P grace Number RL [id number] [place], [place] [address] documented in this encounter Visit Diagnoses Diagnosis Status post kidney transplant - Primary computer terminal operator current use of immunosuppress caro drug documented in this encounter
--- OUTSIDE RECORDS SUMMARY | 2021-05-04 19:10 | XMS REPORT | Clinical Summary ---
Author Author [facility] Organization [facility] Address Unknown Phone Unavailable Care Team Providers Care Head Grower Name Role Phone Eva Rooney MD PCP Mohamud Manley MD Unavailable Source Comments Some departments are not documenting in the electronic medical record. If you d o not see the information that you expected, contact Release of Information in [facility] [employer] Information Management department at [phone] for further assistan ce in locating additional records.[facility] Allergies Comments Active Allergy Reactions Severity Noted Date Penicillin G UNKNOWN Low 05/02/2018 Medications End Date Status Medication Sig Dispensed Refills Start Date Active acetaminophen (TYLENOL) Take 325 mg 0 325 mg tablet by mouth every 4 hours as needed for Pain. Active amLODIPine (NORVASC) 10 Take 10 mg by 0 mg tablet mouth daily. Active aspirin EC 81 mg tablet Take 81 mg by 0 mouth daily. Take with food. Active calcitriol (ROCALTROL) Take 0.25 mcg 0 0.25 mcg capsule by mouth daily. Active calcium carbonate (TUMS) Chew 500 mg 0 500 mg (200 mg elemental by mouth calcium) chewable tablet daily. Active carvedilol (COREG) 6.25 Take 6.25 mg 0 mg tablet by mouth twice daily with meals. Take with food. Active cloNIDine (CATAPRES-TTS Apply 1 patch 0 2) 0.2 mg/day patch to top of skin as directed every 7 days. Active lisinopril (PRINIVIL, Take 40 mg by 0 04/21/20 1 ZESTRIL) 40 mg tablet mouth daily. 8 Active NOVOLOG FLEXPEN U-100 0 INSULIN 100 unit/mL 8 injection PEN Active LANTUS SOLOSTAR U-100 0 INSULIN 100 unit/mL (3 8 mL) injection PEN Active torsemide(+) (DEMADEX) 100 mg. 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 Right DIALYSIS FISTULA / GRAFT 07/08/2018 Right Trans position of RUE AVF with side branch ligation REVISION - Sindhu Medical History Medical History Date Comments DM (diabetes mellitus) (HCC) Peripheral artery disease (HCC) Hypertension Chronic kidney disease Family History Medical History Relation Name Comments Diabetes Father Heart Disease Father Hypertension Father Circulatory problem Mother Varicose Veins Diabetes Mother Heart Disease Mother Hypertension Mother Stroke Mother Relation Name Status Comments Father Mother Social History Date Tobacco Use Types Packs/Day Years Used Never Smoker Smokeless Tobacco: Never Used Comments Alcohol Use Standard Drinks/Week No 0 (1 standard drink = 0.6 o z pure alcohol) Alcohol Habits Answer Date Recorded How often do you have a drink containing alcohol? Never 05/02/2018 How many drinks containing alcohol do you have on No t asked a typical day when you are drinking? How often do you have six or more drinks on one Not asked occasion? Comment: Not asked Sex Assigned at Date Recorded Not on file Last Filed Vital Signs Reading Time Taken Comments Vital Sign 118/72 08/05/2018 9:39 AM CDT Blood Pressure - - Pulse - - Temperature - - Respiratory Rate - - Oxygen Saturation - - Inhaled Oxygen Concentration 89.4 kg (197 lb) 08/05/2018 9:39 AM CDT Weight 167.6 cm (5' 6") 08/05/2018 9:39 AM CDT Height 31.8 08/05/2018 9:39 AM CDT Body Mass Index Plan of Treatment Health Maintenance Due Date Last Done Comments MEDICARE ANNUAL WELLNESS 1966 VISIT HIV SCREENING 1981 DTAP/TDAP VACCINES (1 - 1984 Tdap) HEPATITIS C SCREENING 1984 PHYSICAL (COMPREHENSIVE) 1984 EXAM CERVICAL CANCER SCREENING 09/27/1987 BREAST CANCER SCREENING 2006 COLORECTAL CANCER 2016 SCREENING SHINGLES RECOMBINANT 2016 VACCINE (1 of 2) INFLUENZA VACCINE 12/11/2020 Results Not on filefrom Last 3 Months Insurance Type Payer Benefit Subscriber ID Effective Phone Address Plan / Dates Group Medicare HUMANA MEDICARE HUMANA [id number] 2017-P [phone] [address] PPO resent [address] [place] [address] ([place]) [place] [address] Advance Directives Patient Cook Helper Explanation Type Date Recorded Advance Directive/DPOA Care Teams Start Date End Date Head Grower Relationship Specialty 05/14/18 Eva Rooney MD PCP - [facility] [address] [place], [place] [id number] 05/14/18 Mohamud Manley MD Vascular [address] [place] [address] Surgery Vascular Surgery [place], [place] [id number]
--- OUTSIDE RECORDS SUMMARY | 2021-05-04 19:10 | XMS REPORT | Encounter Summary ---
Author Author [facility] Organization [facility] Address Unknown Phone Unavailable Care Team Providers Care Jammer Hooker Name Role Phone PCP Unavailable Encounter Details Care Team Description Date Type Department Dahiana Cohen MD [address] [facility] [address] [place] [address] Encounter for aftercare following kidney transplant; Kidney replaced by transplant 03/23/2021 Lab [facility] [address] [facility] [address] [place] [address] Social History Date Tobacco Use Types Packs/Day [...] Lab 06/23/2021 Lab Lab Matthew Rivera MD [address] [facility] [address] [place] [address] 06/29/2021 Office Visit Transplant Order Schedule Name Type Priority Associated Diag noses 1 Occurrences starting 03/23/2021 until 03/23/2022 EXTRA TUBES Lab Routine Encounter for a ftercare following kidney transplant Kidney replaced by transplant documented as of this encounter Procedures Comments Procedure Name Priority Date/Time Associated Diag nosis EXTRA URINE SPECIMEN IN Routine 03/23/2021 SIMMONS TUBE 6:06 AM DIE SINKER APPRENTICE BK VIRUS DNA QT PCR, Routine 03/23/2021 Encounter for aftercare URINE 6:06 AM DIE SINKER APPRENTICE following kidney transplant Kidney replaced by transplant URINALYSIS REFLEX Routine 03/23/2021 Encounter fo r aftercare 6:06 AM DIE SINKER APPRENTICE following kidney transplant Kidney replaced by transplant PROTEIN URINE RANDOM Routine 03/23/2021 Encounter for aftercare 6:06 AM DIE SINKER APPRENTICE following kidney transplant Kidney replaced by transplant TACROLIMUS Routine 03/23/2021 Encounter for a ftercare 6:06 AM DIE SINKER APPRENTICE following kidney transplant Kidney replaced by transplant RENAL PANEL Routine 03/23/2021 Encounter for a ftercare 6:06 AM DIE SINKER APPRENTICE following kidney transplant Kidney replaced by transplant MAGNESIUM Routine 03/23/2021 Encounter for a ftercare 6:06 AM DIE SINKER APPRENTICE following kidney transplant Kidney replaced by transplant CBC AND DIFF (MANUAL DIFF Routine 03/23/2021 [place]co unter for aftercare IF NECESSARY) 6:06 AM DIE SINKER APPRENTICE following kidney transplant Kidney replaced by transplant CMV PCR QUANTITATIVE Routine 03/23/2021 Encounter for aftercare 6:06 AM DIE SINKER APPRENTICE following kidney transplant Kidney replaced by transplant BK VIRUS DNA QT PCR, Routine 03/23/2021 Encounter for aftercare BLOOD 6:06 AM DIE SINKER APPRENTICE following kidney transplant Kidney replaced by transplant documented in this encounter Results * Extra Urine Specimen in Simmons Tube (03/23/2021 6:06 AM DIE SINKER APPRENTICE) RAINBOW DRAW [place] Draw/Extra Tube Hold SLRL HOLD SPECIMENS Specimen Specimen Urine - Urine Clean Catch Performing Organization Address City/State/ZIP Code P grace Number RL [id number] [place], [place] [address] * Urinalysis Reflex (03/23/2021 6:06 AM DIE SINKER APPRENTICE) Appearance, Yellow Colorless, Yellow, SLRL Urine Dark Yellow Glucose Urine Negative Negative mg/dL SLRL Bilirubin Urine Negative Negative SLRL Ketones Urine Negative Negative SLRL Specific 1.015 >1.005-<1.030 SLRL [place] Urine Hemoglobin Negative Negative SLRL Urine PH Urine 6.0 5.0 - 8.0 SLRL Protein Urine Negative Negative, Trace SLRL Qual mg/dL Urobilinogen Normal Normal, Negative, SLRL Urine 1.0 EU/dL Nitrite Urine Negative Negative SLRL Leukocyte Negative Negative [facility]RL Esterase Specimen Urine - Urine Performing Organization Address [facility]/ZIP Code P grace Number SLRL [address] [place] [address] * Tacrolimus (03/23/2021 6:06 AM DIE SINKER APPRENTICE) Tacrolimus 6.5 5.0 - 20.0 ng/mL SLRL Specimen Blood - Venous Performing Organization Address [facility] Code P grace Number [id number] [address] [place] [phone] * Renal Panel (03/23/2021 6:06 AM DIE SINKER APPRENTICE) Sodium 141 136 - 145 mEq/L SLRL Potassium 4.4 3.4 - 5.1 mEq/L SLRL Chloride 108 (H) 98 - 107 mEq/L SLRL Carbon Dioxide 26 20 - 31 mEq/L SLRL Anion Gap 7 5 - 17 mmol/L SLRL Anion Gap 7 mmol/L SLRL Calcium 9.5 8.3 - 10.6 mg/dL SLRL Glucose 62 (L) 70 - 100 mg/dL SLRL Albumin 4.4 3.5 - 5.0 g/dL SLRL Blood Urea 34 (H) 9 - 23 mg/dL SLRL Nitrogen Creatinine 1.60 (H) 0.55 - 1.02 mg/dL SLRL eGFR Female AA 40.7 (L) 60.0 - 200.0 SLRL mL/min/1.73m*2 eGFR Female 33.6 (L) 60.0 - 200.0 SLRL Non-AA mL/min/1.73m*2 eGFR Male AA 54.9 (L) 60.0 - 200.0 SLRL mL/min/1.73m*2 eGFR Male 45.3 (L) 60.0 - 200.0 SLRL Non-AA mL/min/1.73m*2 Phosphorus 4.1 2.4 - 5.1 mg/dL SLRL Specimen Blood - Venous Performing Organization Address [facility] Code P grace Number [id number] [place] [phone] * Protein Urine Random (03/23/2021 6:06 AM DIE SINKER APPRENTICE) Creatinine 57.5 mg/dL SLRL Urine Protein/Creat 157 (H) 0 - 150 mg/g SLRL Ratio Protein Urine 9.0 mg/dL SLRL Quantitative Specimen Urine - Urine Performing Organization [facility] [place] P grace Number SLRL [id number] [place] [address] * Magnesium (03/23/2021 6:06 AM DIE SINKER APPRENTICE) Magnesium 1.80 1.60 - 2.60 mg/dL SLRL Specimen Blood - Venous Performing Organization [facility] [place] P grace Number [id number] [place] [address] * BK Virus DNA QT PCR, Urine (03/23/2021 6:06 AM DIE SINKER APPRENTICE) BK Virus DNA QT 27,000 (H) Not Detected SLRL PCR Urine copies/mL Specimen Urine - Urine Performing Organization [facility] [place] P grace Number SLRL [address] [place] [address] * CBC and Diff (manual diff if necessary) (03/23/2021 6:06 AM DIE SINKER APPRENTICE) WBC 7.76 4.00 - 11.00 TH/uL SLRL RBC 3.80 (L) 4.00 - 5.00 mil/uL SLRL Hemoglobin 11.5 (L) 12.0 - 15.0 g/dL SLRL Hematocrit 36 36 - 45 % SLRL MCV 94 80 - 99 fL SLRL MCH 30 27 - 34 pg SLRL MCHC 32 32 - 36 % SLRL RDW 12.4 9.0 - 14.5 % SLRL Platelet Count 265 140 - 400 Th/uL SLRL MPV 9.5 9.4 - 12.3 fL SLRL Nucleated RBCs 0 0 - 0 /100 WBC SLRL % Neutrophils 83 (H) 45 - 78 % SLRL % Lymphocytes 10 (L) 15 - 47 % SLRL % Monocytes 6 0 - 12 % SLRL % Eosinophils 1 0 - 7 % SLRL % Basophils 0 0 - 2 % SLRL % Imm Grans 0 0 - 1 % SLRL # Granulocytes 6.44 1.70 - 6.80 TH/uL SLRL # Lymphocytes 0.81 (L) 1.00 - 3.30 TH/uL SLRL # Monocytes 0.44 0.20 - 0.90 TH/uL SLRL # Eosinophils 0.04 0.00 - 0.40 TH/uL SLRL # Basophils 0.02 0.00 - 0.10 TH/uL SLRL Specimen Blood - Venous Performing Organization Address City/State/ZIP Code P grace Number [facility]RL [address] [place] [phone] * CMV PCR Quantitative (03/23/2021 6:06 AM DIE SINKER APPRENTICE) [facility] CMV PCR Not Detected Not Detected IU/mL SLRL Quantitative CMV PCR Not Detected Not Detected LOG SLRL Quantitative-Lo g Specimen Blood - Venous Performing Organization Address City/[facility] P grace Number [id number] [address] [place] [phone] * BK Virus DNA QT PCR, Blood (03/23/2021 6:06 AM DIE SINKER APPRENTICE) [facility] BK Virus DNA QT Not Detected Not Detected SLRL PCR Blood copies/mL Specimen Blood - Venous Performing Organization Address City/[facility] P grace Number [facility]RL [id number] [place] [phone] documented in this encounter Visit Diagnoses Diagnosis Encounter for aftercare following kidne y transplant Kidney replaced by transplant documented in this encounter
--- OUTSIDE RECORDS SUMMARY | 2021-05-04 19:10 | XMS REPORT | Encounter Summary ---
Author Author [facility] Organization [facility] Address Unknown Phone Unavailable Care Team Providers Care Photograph Retoucher Name Role Phone PCP Unavailable Encounter Details Care Team Description Date Type Department Jose Mcfarland MD [address] [facility] [address] [place] [address] 05/04/2021 Telephone [facility] [address] [facility] [place] [address] Social History Date Tobacco Use Types Packs/Day [...] Lab 06/23/2021 Lab Lab Matthew Rivera MD [facility] [address] [address] 06/29/2021 Office Visit Transplant documented as of this encounter Visit Diagnoses Not on filedocumented in this encounter
--- OUTSIDE RECORDS SUMMARY | 2021-05-04 19:10 | XMS REPORT | Encounter Summary ---
Author Author [facility] Organization [facility] Address Unknown Phone Unavailable Care Team Providers Care Freight Router Name Role Phone PCP Unavailable Reason for Referral * Consultation (Routine) - Pending Review Diagnoses / Procedures Referred By Contact Referred To Conta ct Specialty Diagnoses group home current use of immunosuppressive drug Status post kidney transplant Type 2 diabetes mellitus with chronic kidney disease, with long-term current use of insulin, unspecified CKD stage (HCC) Sarbjit Park MD [address] [facility] [address] [place] [address] [facility] [address] [facility] [address] [place] [address] Endocrinology Referral ID Status Reason Start Date Expiration Visits Vi sits Date Requested Authorized [id number] Pending Specialty Services 04/25/2021 10/24/2021 1 1 Review Required HOLOGY TEACHER Reason for Visit * Reason Comments Kidney Transplant Follow-up Encounter Details Care Team Description Date Type Department Dahiana Cohen MD [address] [place] [address] Sarbjit Park MD [address] [place] [address] exterminator helper current use of immunosuppressi ve drug (Primary Dx); Status post kidney transplant; Type 2 diabetes mellitus with chronic kidney disease, with long-term current use of insulin, unspecified CKD stage (HCC) 04/25/2021 Office Visit [facility] Kidney and Liver Transplant Program [facility], [address] [place] [address] Social History Date Tobacco Use Types Packs/Day Years Used 1981 - 1985 Former Smoker 1 4 Smokeless Tobacco: Never Used Comments Alcohol Use Standard Drinks/Week Not Currently 0 (1 standard drink = 0.6 o z pure alcohol) Sex Assigned at Date Recorded Female 10/06/2020 10:04 AM CDT documented as of this encounter Last Filed Vital Signs Reading Time Taken Comments Vital Sign 152/68 04/25/2021 12:24 PM PSYCHOLOGY TEACHER Blood Pressure 73 04/25/2021 12:24 PM PSYCHOLOGY TEACHER Pulse 36.8 C (98.2 F) 04/25/2021 12:24 PM PSYCHOLOGY TEACHER Temperature 16 04/25/2021 12:24 PM PSYCHOLOGY TEACHER Respiratory Rate 95% 04/25/2021 12:24 PM PSYCHOLOGY TEACHER Oxygen Saturation - - Inhaled Oxygen Concentration - - Weight 167.6 cm (5' 6") 04/25/2021 12:24 PM PSYCHOLOGY TEACHER Height - - Body Mass Index documented in this encounter Patient Instructions * Patient Instructions* Ad Abdullahi RN - 04/25/2021 12:00 PM PSYCHOLOGY TEACHER 1. Increase hydralazine to 50 mg twice daily 2. Stop bactrim and 1 year post kidney transplant 3. Decrease aspirin to 81 mg once daily 4. Labs monthly 05/26 & 06/23/21 0600 [facility] 5. Return to clinic in 2 months, 06/29/21 @ 1:00 HOLOGY TEACHER documented in this encounter Progress Notes * Sarbjit Park MD - 04/25/2021 12:00 PM PSYCHOLOGY TEACHER During C OVID-19 Pandemic [facility] Renal Transplant Clinic Note: Renal transplantation and Immunosuppression follow up visit Date of Encounter: 04/25/21 HPI: Ms. Vanna Damon a 55year-old femalewith h/oESRD, DM2, and HTNwho un derwent aDDRTon 06/03/2020 (POD 326) is here fora scheduled post-transpl ant clinic follow-up.Her PMH/PSH are significant for: 1)h/oESRD: on LICENSED GUIDE since 04/2018 2) DM2 3) HTN 4) PAD 5) h/o migraine 6) s/p R BKA (2014) 7) s/p RUE AVF 8) s/p hysterectomy (1997) 9) s/p C/S x3 10) s/p carpal tunnel release Renal transplant history: Tx Surgeon: Marlyn Donor Type / KDPI: DCD / 69% Kidney: Right PRA: 98% Match: 2A, 2B 1 CMV: D - / R + CIT: 17 hours 45 minutes Induction: Thymo x5 Renal Failure Dx: Diabetes type 2 Increased Risk Donor: YES She hadanearly graft functionbut hadpersistent nausea and vomiting for w hich she underwent EGD which showed mild erosive esophagitiswhich resolved gertrudis rtly after. She washospitalized and got a kidney transplant biopsy on 08/17/20 for GISELLE (Cr 1 .1 --> 2.0).The biopsy revealed single tubule with weak positive staining for BK. global glomerulosclerosis. Mild IFTA. She completed 4 doses of IVIG and her myfortic wasdiscontinueddue to leucopenia andBK viremia. She had another kidney transplant biopsy on 10/07/20 which showed BK nephropathy. Unfortunately, she had a fall in October and underwent ORIF of right femur on 10/23/20. She was last seen in transplant clinic by Dr. Cohen on 01/14/21 The patient comes in today feeling well. The patient denies having abnormal uri nation, dysuria, blood in urine, nausea, vomiting, diarrhea, abdominal pain, nig ht sweats, fever, significant weight changes or rash. The patient denies having any difficulty obtaining or taking medications. Impression: 55y.o.femalewith DM2, HTN, PAD, s/p BKA (2014), and ESRD who underwent a DDRT on 06/03/20 (cPRA 98%, KDPI 69%, DCD, CIT 17 hours, zero Ag mismatch). 1) ESRDs/pDDKTnearly a year out pain, She is immunologically high risk giv en high cPRA. 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 Her serum creatinineis baseline of 1.5 mg/dL. No significant proteinuria. -Continue to monitor serum creatinine and urine protei n to creatinine ratio - Last Allosure obtained on03/23/2021 wasless than 0.12%. We will repeat with labs next - Last DSA obtained on11/18/20 was negative, will repeat in a month -Is not requiring Lasix, home dose was 20 mg PO twice d aily daily - Switch aspirin to 81 mg daily 2) Immunosuppression. Tolerating all medications well. Sandraost kaylee muslevelis7, acceptable.Goal of tacrolimus of6-8. - Continue rothhfaudm5to PO BID. -Continue to be off Myforticdue to BK viremia - Continue prednisone 5 mg PO daily 3) Prophylaxis. -CMV intermediate risk;valcyte was stopped prematurel y because of leukopenia. - Bactrim for PCP prophylaxis.continue Bactrim daily t ill 1 year galina 4) Viral monitoring.The donor was an [facility] increased risk donor.PHS labs at6 months werenegative.No need to monitor PHS labs going forward. 5) BK viremiaand BK nephropathy.Serum BK is now negative since 11/18/2020 when her BK PCR was 900 copies.. Continue to hold Myfortic. 6) Blood pressure.Blood pressure elevated at home blood pressures [id number], will increase hydralazine to 50 mg p.o. twice daily and .ContinueCoreg and amlodipine. May continue off Lasix. 7) Anemia.resolved.Continue to monitor H&H. 8) Bone/calcium-metabolism.Serum calcium and phos are normal.Continue to mon itor. 9) DM: blood sugarsareelevated. Now she is having hypoglycemic episodes. R equested a referral to [facility]. Labs in 1 month and return to clinic in 2 months Continue to manage patient's immunosuppression and monitor for effects including oppurtunistic infections, malignancy, bone marrow suppression and metabolic syn drome. Plan of care discussed with patient and health sciences program coordinator ROS In a wheelchair, states she has been allowed to be weightbearing now. No shortness of air. No urinary complaints. No fevers or chills. Complains of some low blood glucose at home in 50s, will be addressing this with her resource protection specialist Blood pressure elevated at home Problem List Patient Active Problem List Diagnosis SNOMED CT(R) Diabetes mellitus type 2, insulin dependent (HCC) INSULIN TREATED TYPE 2 KORIN BETES MELLITUS PAD (peripheral artery disease) ([facility]) PERIPHERAL ARTERIAL DISEASE Obesity (BMI 30-39.9) BODY MASS INDEX 30+ - OBESITY Hemodialysis status ([facility]) DEPENDENCE ON HEMODIALYSIS Essential hypertension ESSENTIAL HYPERTENSION ESRD on dialysis ([facility]) END STAGE RENAL FAILURE ON DIALYSIS Anemia of chronic disease ANEMIA OF CHRONIC DISEASE Preop cardiovascular exam PATIENT ENCOUNTER STATUS Renal transplant recipient HISTORY OF RENAL TRANSPLANT Kidney transplant status, cadaveric HISTORY OF RENAL TRANSPLANT ESRD on hemodialysis ([facility]) DEPENDENCE ON HEMODIALYSIS DUE TO END STAGE RENAL DISEASE Encounter for monitoring immunomodulating therapy DRUG THERAPY FINDING Postoperative nausea and vomiting POSTOPERATIVE NAUSEA AND VOMITING Hypomagnesemia HYPOMAGNESEMIA Nausea and vomiting NAUSEA AND VOMITING End stage renal disease (HCC) END-STAGE RENAL DISEASE Encounter for aftercare following kidney transplant HISTORY OF RENAL TRANSPL ANT Long-term use of immunosuppressant medication LONG-TERM CURRENT USE OF IMMUN OSUPPRESSIVE DRUG At risk for infection due to immunosuppression AT RISK FOR INFECTION 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 Acute rejection of kidney transplant ACUTE REJECTION OF RENAL TRANSPLANT Elevated serum creatinine SERUM CREATININE RAISED exterminator helper current use of immunosuppressive drug LONG-TERM CURRENT USE OF IMM UNOSUPPRESSIVE DRUG GISELLE (acute kidney injury) ([facility]) ACUTE INJURY OF KIDNEY Closed fracture of right distal femur ([facility]) CLOSED FRACTURE OF DISTAL END OF RIGHT FEMUR Fall FALL Immunosuppression ([facility]) IMMUNOSUPPRESSION Renal transplant recipient HISTORY OF RENAL TRANSPLANT Uncontrolled type 2 diabetes mellitus with hyperglycemia, with long-term cur rent use of insulin ([facility]) TYPE II DIABETES MELLITUS UNCONTROLLED Hypertension HYPERTENSIVE DISORDER Type 2 diabetes mellitus with diabetic nephropathy, with long-term current u se of insulin ([facility]) INSULIN TREATED TYPE 2 DIABETES MELLITUS Past Med Hx Past Medical History: Diagnosis Date Anemia of chronic disease Diabetic foot ulcers ([facility]) ESRD on dialysis ([facility]) Essential hypertension Hx of migraines Obesity (BMI 30-39.9) Osteoarthritis PAD (peripheral artery disease) ([facility]) Reflux esophagitis Tubular adenoma of colon Uncontrolled type 2 diabetes mellitus with hyperglycemia, with long-term cur rent use of insulin ([facility]) Medication History Current Outpatient Medications Medication Sig Dispense Refill ACCU-CHEK MARK PLUS test strips Use to check blood glucoses 4 times daily 1 00 strip 3 acetaminophen (TYLENOL) 500 MG tablet Take 1 tablet (500 mg total) by mouth every 6 (six) hours. amLODIPine (NORVASC) 10 MG tablet Take 1 tablet (10 mg total) by mouth daily . aspirin 325 MG tablet Take 1 tablet (325 mg total) by mouth daily. 30 tablet 0 carvediloL (COREG) 25 MG tablet Take 1 tablet (25 mg total) by mouth 2 (two) times a day. docusate sodium (COLACE) 100 MG capsule Take 1 capsule (100 mg total) by jc th 2 (two) times a day. furosemide (LASIX) 20 MG tablet Take 1 tablet (20 mg total) by mouth daily a s needed. 90 tablet 3 HUMALOG KWIKPEN INSULIN 100 unit/mL pen Inject 1 Units under the skin 3 (thr ee) times a day with meals. 1 unit for 6 grams of carbs 15 mL 0 hydrALAZINE (APRESOLINE) 50 MG tablet Take 0.5 tablets (25 mg total) by mout h 2 (two) times a day. 30 tablet 11 lancets 33 gauge Misc by Miscellaneous route 5 (five) times a day. 450 each 3 LANTUS SOLOSTAR U-100 INSULIN 100 unit/mL (3 mL) pen Inject 35 Units under t he skin nightly. 15 mL 0 oxyCODONE (ROXICODONE) 5 MG immediate release tablet Take 1-2 tablets (5-10 mg total) by mouth every 4 (four) hours as needed. Max Daily Dose: 60 mg 21 tabl et 0 pantoprazole (PROTONIX) 40 MG tablet TAKE 1 TABLET BY MOUTH TWICE DAILY BEFO RE BREAKFAST AND DINNER 60 tablet 11 polyethylene glycol (GLYCOLAX) 17 gram packet Take 1 packet (17 g total) by mouth daily. 14 each 0 predniSONE (DELTASONE) 5 MG tablet Take 1 tablet (5 mg total) by mouth daily . sulfamethoxazole-trimethoprim (BACTRIM,SEPTRA) 400-80 mg per tablet Take 1 t ablet by mouth daily. tacrolimus (PROGRAF) 1 MG capsule 3 mg in the AM and 4 mg in the PM 210 caps ule 11 ULTICARE PEN NEEDLE 32 gauge x 5/32" pen needles by Miscellaneous route scott y. Use to inject insulin 4 or more times daily 200 each 3 No current facility-administered medications for this visit. Allergy Allergies Allergen Reactions Penicillins Rash and Edema Reports Swelling of the lips Social/Family History Social History Tobacco Use Smoking status: Former Smoker Packs/day: 1.00 Years: 4.00 Pack years: 4.00 Start date: 1981 Quit date: 1986 Years since quittin.9 Smokeless tobacco: Never Used Substance Use Topics Alcohol use: Not Currently Drug use: Not Currently Non contributory for patients current kidney transplant / electrolyte problem Vital Signs Blood Pressure: Pulse: Temperature: Respirations: Admission Weight: O2 Saturation: Today's Weight: BMI: There is no height or weight on file to calculate BMI. Physical Exam Constitutional: Oriented to person, place, and time. NAD Eyes: Nonicteric. Cardiovascular: Normal heart sounds, no rub Pulmonary: No wheezes or rales. GI: Soft. Bowel sounds normal. No rebound or guarding. Nontender renal transplan t Neurological: Alert and oriented to person, place, and time. No focal deficit Skin: Skin warm. No rash. No edema. Right leg amputation Psychiatric: Normal mood and affect. Diagnostics No lab components to display No lab components to display This encounter took 30 minutes including [id number] and preparation time. Thi s time includes taking a history, reviewing lab results, discussion of immunosup pression and its consequences, reviewing PCP and referring provider notes, updat ing patient medical record and coordinating care with other providers. Electronically signed by Sarbjit Park MD, VIOLETA 04/25/2021 12:25 PM HOLOGY TEACHER documented in this encounter Plan of Treatment Care Team Description Date Type Specialty 05/26/2021 Lab Lab 06/23/2021 Lab Lab Matthew Rivera MD [address] [place] [id number] 06/29/2021 Office Visit Transplant Order Schedule Name Type Priority Associated Diag noses Monthly for 2 Occurrences starting 04/25 until 04/25/2022 BK Virus DNA QT PCR, Lab STAT group home current use of Blood immunosuppressive drug Status post kidney transplant Monthly for 2 Occurrences starting 04/25 until 04/25/2022 BK Virus DNA QT PCR, Lab STAT exterminator helper current use of Urine immunosuppressive drug Status post kidney transplant Monthly for 2 Occurrences starting 04/25 until 04/25/2022 CBC and Diff (manual diff Lab STAT group home current use of if necessary) immunosuppressive drug Status post kidney transplant Monthly for 2 Occurrences starting 04/25 until 04/25/2022 CMV PCR Quantitative Lab STAT group home current use of immunosuppressive drug Status post kidney transplant Monthly for 2 Occurrences starting 04/25 until 04/25/2022 Donor Specific Antibodies Lab STAT group home current use of immunosuppressive drug Status post kidney transplant Monthly for 2 Occurrences starting 04/25 until 04/25/2022 Protein Urine Quant Lab STAT exterminator helper current use of Random immunosuppressive drug Status post kidney transplant Monthly for 2 Occurrences starting 04/25 until 04/25/2022 Renal Panel Lab STAT exterminator helper curre nt use of immunosuppressive drug Status post kidney transplant Monthly for 2 Occurrences starting 04/25 until 04/25/2022 Magnesium Lab STAT exterminator helper curre nt use of immunosuppressive drug Status post kidney transplant Monthly for 2 Occurrences starting 04/25 until 04/25/2022 Tacrolimus Lab STAT exterminator helper curre nt use of immunosuppressive drug Status post kidney transplant Monthly for 2 Occurrences starting 04/25 until 04/25/2022 Urinalysis Reflex Lab STAT group home cu rrent use of immunosuppressive drug Status post kidney transplant Order Schedule Name Type Priority Associated Diag noses 1 Occurrences starting 04/25/2021 until 10/24/2021 Ambulatory referral to Outpatient Routine Long te rm current use of Endocrinology Referral immunosuppressive d rug Status post kidney transplant Type 2 diabetes mellitus with chronic kidney disease, with long-term current use of insulin, unspecified CKD stage (HCC) documented as of this encounter Visit Diagnoses Diagnosis group home current use of immunosuppress caro drug - Primary Status post kidney transplant Type 2 diabetes mellitus with chronic k idney disease, with long-term current use of insulin, unspecified CKD stage (HCC) documented in this encounter
--- OUTSIDE RECORDS SUMMARY | 2021-05-04 19:10 | XMS REPORT | Encounter Summary ---
Author Author [facility] Organization [facility] Address Unknown Phone Unavailable Care Team Providers Care Physical Education Specialist Name Role Phone PCP Unavailable Reason for Visit * Reason Onset Date Comments Medication Refill 04/20/2021 Encounter Details Care Team Description Date Type Department Rachell Escobar RN Medication Refill 04/20/2021 Refill [facility] Kidney and Liver Transplant Program [address] [place] [address] [address] [place], [place] [id number] Social History Date Tobacco Use Types Packs/Day Years Used 1981 - 1985 Former Smoker 1 4 Smokeless Tobacco: Never Used Comments Alcohol Use Standard Drinks/Week Not Currently 0 (1 standard drink = 0.6 o z pure alcohol) Sex Assigned at Date Recorded Female 10/06/2020 10:04 AM CDT documented as of this encounter Miscellaneous Notes * Telephone Encounter - Rachell Escobar RN - 04/20/2021 1:11 PM PIN DRAFTER OPERATOR Refill for tacrolimus sent to [facility]. Rachell Escobar, 04/20/2021 1:1 1 PM DRAFTER OPERATOR documented in this encounter Plan of Treatment Care Team Description Date Type Specialty 05/26/2021 Lab Lab 06/23/2021 Lab Lab Matthew Rivera MD [facility] [address] [place] [address] 06/29/2021 Office Visit Transplant documented as of this encounter Visit Diagnoses Not on filedocumented in this encounter
--- NOTE | 2021-05-04 19:12 | ED General ---
General Stated Complaint: BLOOD SUGAR LOW Source of Information: Patient Exam Limitations: No Limitations History of Present Illness Date Seen by Provider: May 04, 2021 Time Seen by Provider: 19:07 Initial Comments 55-year-old female with past medical history of diabetes on insulin coming in due to a low blood sugar. She was in the 50s while at the store earlier today so she presented to the emergency department. She took her glucose level because she felt "off". She did eat candy after that episode. Allergies and Home Medications Allergies Coded Allergies: Penicillins (Verified Allergy, Severe, HIVES, 07/25/18) Patient Home Medication List Home Medication List Reviewed: Yes Amlodipine Besylate (Amlodipine Besylate) 10 Mg Tablet, 10 MG PO DAILY, (Reported) Entered as Reported by: ANGELIC ZAVALA on 08/31/20 1237 Aspirin (Aspirin EC) 81 Mg Tablet.dr, 81 MG PO DAILY, (Reported) Entered as Reported by: ANGELIC ZAVALA on 08/31/20 1237 Carvedilol (Carvedilol) 25 Mg Tablet, 25 MG PO BID, (Reported) Entered as Reported by: MAUREEN BANKS on 07/10/181824 Furosemide (Furosemide) 20 Mg Tablet, 20 MG PO DAILY, (Reported) Entered as Reported by: ANGELIC ZAVALA on 08/31/20 123 Glucagon,Human Recombinant (Glucagen) 1 Mg Vial, 1 MG IJ ONCE PRN for HYPOGLYCE CURTIS Prescribed by: LEX OSWALD on 08/31/20 1324 Insulin Aspart (Novolog Flexpen) 300 Units/3 Ml Solution, (Reported) Entered as Reported by: MAUREEN BANKS on 07/10/18 182 Insulin Glargine,Hum.rec.anlog (Lantus Solostar) 100 Unit/1 Ml Insuln.pen, (Reported) Entered as Reported by: MAUREEN BANKS on 07/10/181824 Metoclopramide HCl (Metoclopramide HCl) 10 Mg Tablet, 10 MG PO ACHS, (Reported) Entered as Reported by: ANGELIC ZAVALA on 08/31/20 123 Pantoprazole Sodium (Pantoprazole Sodium) 40 Mg Tablet.dr, 40 MG PO BID, (Reported) Entered as Reported by: ANGELIC ZAVALA on 08/31/20 1237 Prednisone (Prednisone) 5 Mg Tablet, 5 MG PO DAILY, (Reported) Entered as Reported by: ANGELIC ZAVALA on 08/31/20 1237 Tacrolimus (Tacrolimus) 1 Mg Capsule, (Reported) Entered as Reported by: ANGELIC ZAVALA on 08/31/20 1237 Torsemide (Torsemide) 100 Mg Tablet, (Reported) Entered as Reported by: MAUREEN BANKS on 07/10/18 182 Valganciclovir HCl (Valganciclovir HCl) 450 Mg Tablet, (Reported) Entered as Reported by: ANGELIC ZAVALA on 08/31/20 1237 Review of Systems Review of Systems Constitutional: no symptoms reported EENTM: no symptoms reported Respiratory: no symptoms reported Cardiovascular: no symptoms reported Gastrointestinal: no symptoms reported Genitourinary: no symptoms reported Musculoskeletal: no symptoms reported Skin: no symptoms reported Psychiatric/Neurological: No Symptoms Reported Hematologic/Lymphatic: No Symptoms Reported Immunological/Allergic: no symptoms reported All Other Systems Reviewed Negative Unless Noted: Yes Past Xhqzvsj-Anhblb-Zmbosn Hx Patient Social History Tobacco Use?: No Substance use?: No Seasonal Allergies Seasonal Allergies: No Past Medical History Surgeries: Yes (Carpal Tunnel, Fistula R arm, amputee-R BKA, back surgery;) Gallbladder, Hysterectomy, Kidney Transplant, Orthopedic Respiratory: No Cardiac: Yes Chronic Edema/Swelling, Heart Attack, Hypertension 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 0oz. [id number]; 28.00 BMI Method:Stated General Appearance: No Apparent Distress, WD/WN Eyes: Bilateral Eye Normal Inspection, Bilateral Eye PERRL HEENT: PERRL/EOMI, Normal ENT Inspection, Pharynx Normal Neck: Full Range of Motion, Normal Inspection, Non Tender, Supple Respiratory: Chest Non Tender, Lungs Clear, Normal Breath Sounds, No Accessory Muscle Use, No Respiratory Distress Cardiovascular: Regular Rate, Rhythm, No Edema, Normal Peripheral Pulses Gastrointestinal: Normal Bowel Sounds, Non Tender, Soft; No Distended, No Guarding Back: Normal Inspection, No CVA Tenderness, No Vertebral Tenderness Extremity: Normal Capillary Refill, Normal Inspection, Normal Range of Motion, Non Tender, No Calf Tenderness, No Pedal Edema Neurologic/Psychiatric: Alert, Oriented x3, No Motor/Sensory Deficits, Normal Mood/Affect, system controller II-XII Norm as Tested Skin: Normal Color, Warm/Dry Lymphatic: No Adenopathy Progress/Results/Core Measures Suspected Sepsis SIRS Temperature: Pulse: Respiratory Rate: Blood Pressure / Mean: Laboratory Tests 05/04/21 19:45: Creatinine 1.34H Results/Orders Lab Results Laboratory Tests Test 05/04/21 19:09 05/04/21 19:21 05/04/21 19:39 05/04/21 19:45 Range/Units Glucometer 39 *L 45 *L 110 70-110 MG/DL Sodium Level 139 135-145 MMOL/L Potassium Level 5.8 H 3.6-5.0 MMOL/L Chloride Level 106 98-107 MMOL/L Carbon Dioxide Level 22 21-32 MMOL/L Anion Gap 11 5-14 MMOL/L Blood Urea Nitrogen 33 H 7-18 MG/DL Creatinine 1.34 H 0.60-1.30 MG/DL Estimat Glomerular Filtration Rate 41 BUN/Creatinine Ratio 25 Glucose Level 179 H 70-105 MG/DL Calcium Level 8.4 L 8.5-10.1 MG/DL Test 05/04/21 20:20 Range/Units Glucometer 180 H 70-110 MG/DL My Orders Orders - DEANNA GARCIA MD D50w (Emergency) Syringe (Dextrose 50% 5 (05/04/21 19:24) Basic Metabolic Panel (05/04/21 19:26) Accucheck Stat Q15M (05/04/21 19:26) Ed Iv/Invasive Line Start (05/04/21 19:26) Medications Given in ED Current Medications Medications Dose Ordered Sig/Jose M Route Start Time Stop Time Status Last Admin Dose Admin Dextrose 50 ml STK-MED ONCE .ROUTE 05/04/21 19:24 05/04/21 19:26 DC 05/04/21 19:35 25 ML Vital Signs/I&O 05/04/21 05/04/21 19:06 20:30 Temp 36.8 Pulse 70 87 Resp 16 15 B/P (MAP) 140/57 (84) 143/52 Pulse Ox 96 97 O2 Delivery Room Air Room Air Capillary Refill : Progress Note : Progress Note 55-year-old female with above history coming in due to low blood sugar. She was 50s just prior to arrival, and arrival here was in the 30s. He was immediately given multiple different sugary juices with repeat in the 40s. She was then gi clarice half an amp of D50. We will continue to monitor her glucose frequently until it stabilizes. She says she has only eaten one egg, half a piece of toast, and a piece of sausage all day today. She says she has been having lows in the mornings and typically is in the 80s, but lower lows are not uncommon for her. She recently had her long-acting insulin increased and that was 35 units at night of glargine. She does a carb count and has had 6 units of insulin this morning and 6 units at lunch otherwise. Repeat after the half amp of D50 was in the 100s. We will continue to monitor her and it stabilized. She was given a protein source on top of the juices that she was drinking. At this point, I asked the patient if she could stick around for a couple hours while we continue to monitor the glucose to be sure it stabilizes. She says she wants to go home and check her glucose at home, and that she has cold groceries in the car and does not want them to go bad. She is alert and oriented and does have capacity at this time to make this decision. I will just recommend that she frequently check her glucose tonight. Her is with her and is willing to help with this. She was then discharged home in stable condition with strict return precautions. Of note, potassium was elevated on the BMP but it was hemolyzed. She had no signs of hyperkalemia on the monitor earlier. Departure Impression Primary Impression: Hypoglycemia Disposition: 01 HOME, SELF-CARE Condition: Stable Departure-Patient Inst. Decision time for Depature: 20:25 Referrals: KELLSTADT,TATUM L ELECTRIC DISTRIBUTION CHECKER (PCP/Family) Primary Care Physician Patient Instructions: Low Blood Sugar, Adult (DC) Add. Discharge Instructions: You were seen in the emergency department because your blood sugar was low. This likely is because you are not eating enough in the day. You told me you had an egg, toast, and a piece of sausage today, and given how late in the day it is, this will cause low blood sugars with your history of diabetes. Try to eat a more balanced diet with more carbs and protein sources spaced throughout the day. Try not to go more than 4 hours without eating, but if you can eat more frequently than that it would probably be better to prevent lows. Please call your doctor tomorrow and discussed that you had a low blood sugar, as they may want to change her insulin regimen. Be sure to check your sugar at least hourly for the next couple of hours after being home, and I would even wake up in the middle of the night to check it 1 time. Come back to the ER if you cannot get it to come up. DEANNA GARCIA MD May 04, 2021 19:11
[2021-05-04] MEDS ORDERED: DEXTROSE 50% 50 ML (IMS) SYR ONE (19:24)
[2021-05-04 20:10] LABS: CALCIUM 8.4 MG/DL (8.5-10.1); CREATININE SERUM 1.34 MG/DL (0.60-1.30); POTASSIUM 5.8 MMOL/L (3.6-5.0)
[2021-05-04 20:30] VITALS: BP 143/52
== END 2021-05-04 20:30 | disposition home or self-care (01) ==
LOC: EDUNIT# 19:06 → ER FS 19:07
DX: E11.649 Type 2 diabetes mellitus with hypoglycemia without coma (principal); I25.2 Old myocardial infarction; I10 Essential (primary) hypertension; Z79.4 Long term (current) use of insulin; Z79.82 Long term (current) use of aspirin
CPT/HCPCS: 36415; 80048; 82947

== ENCOUNTER 2022-12-20 04:00 | Emergency (ER) | payer MEDICARE ==
[~2022-12-20 04:00] MED LIST changes: +VALG450T15; -VALG450T3
[2022-12-20 04:04] VITALS: BP 162/80
--- NOTE | 2022-12-20 04:21 | ED General ---
General Source of Information: Patient, EMS History of Present Illness Date Seen by Provider: Dec 20, 2022 Time Seen by Provider: 04:00 Initial Comments 57-year-old female presenting with complaints of low blood sugar. EMS brought her in infusing a bag of D10. She was having slow response to answer questions. She could not be more specific about what was going on for the evening. She states that she had been having some vomiting at home. She took her evening dose of Tresiba right before bed. When EMS got there she was on the toilet and they had to lift her off with a towel. She does have a history of kidney transplant takes medications for that as well. She could not tell me the dose of her insulin or medications. She stated that she did not have a current doctor she was following with but is continuing to take medications from [facility] for her kidney transplant and diabetes. Her care is primarily through [facility]. She has not been seen in [place] for 2 years. EMS brought her here tonight. Associated Systoms: No Chest Pain, No Cough, No Diaphoresis, No Headaches; Nausea/Vomiting; No Seizure, No Shortness of Air, No Syncope; Weakness Allergies and Home Medications Allergies Coded Allergies: Penicillins (Verified Allergy, Severe, HIVES, 07/25/18) Patient Home Medication List Home Medication List Reviewed: Yes Amlodipine Besylate (Amlodipine Besylate) 10 Mg Tablet, 10 MG PO DAILY, (Reported) Entered as Reported by: ANGELIC ZAVALA on 08/31/20 1237 Aspirin (Aspirin EC) 81 Mg Tablet.dr, 81 MG PO DAILY, (Reported) Entered as Reported by: ANGELIC ZAVALA on 08/31/20 1237 Carvedilol (Carvedilol) 25 Mg Tablet, 25 MG PO BID, (Reported) Entered as Reported by: MAUREEN BANKS on 07/10/18 182 Furosemide (Furosemide) 20 Mg Tablet, 20 MG PO DAILY, (Reported) Entered as Reported by: ANGELIC ZAVALA on 08/31/20 1237 Glucagon,Human Recombinant (Glucagen) 1 Mg Vial, 1 MG IJ ONCE PRN for HYPOGLYCE CURTIS Prescribed by: LEX OSWALD on 08/31/20 1324 Insulin Aspart (Novolog Flexpen) 300 Units/3 Ml Solution, (Reported) Entered as Reported by: MAUREEN BANKS on 07/10/181824 Insulin Glargine,Hum.rec.anlog (Lantus Solostar) 100 Unit/1 Ml Insuln.pen, (Reported) Entered as Reported by: MAUREEN BANKS on 07/10/181824 Metoclopramide HCl (Metoclopramide HCl) 10 Mg Tablet, 10 MG PO ACHS, (Reported) Entered as Reported by: ANGELIC ZAVALA on 08/31/20 123 Pantoprazole Sodium (Pantoprazole Sodium) 40 Mg Tablet.dr, 40 MG PO BID, (Reported) Entered as Reported by: ANGELIC ZAVALA on 08/31/20 123 Prednisone (Prednisone) 5 Mg Tablet, 5 MG PO DAILY, (Reported) Entered as Reported by: ANGELIC ZAVALA on 08/31/20 123 Tacrolimus (Tacrolimus) 1 Mg Capsule, (Reported) Entered as Reported by: ANGELIC ZAVALA on 08/31/20 123 Torsemide (Torsemide) 100 Mg Tablet, (Reported) Entered as Reported by: MAUREEN BANKS on 07/10/181824 Valganciclovir HCl (Valganciclovir HCl) 450 Mg Tablet, (Reported) Entered as Reported by: ANGELIC ZAVALA on 08/31/20 123 Review of Systems Review of Systems Constitutional: chills; No fever EENTM: no symptoms reported Respiratory: No cough, No short of breath Cardiovascular: No chest pain Gastrointestinal: nausea, vomiting Genitourinary: No dysuria Musculoskeletal: no symptoms reported Skin: no symptoms reported Psychiatric/Neurological: No Symptoms Reported Past Rcgrhcs-Xedcuw-Rrwtzs Hx Seasonal Allergies Seasonal Allergies: No Past Medical History Surgery/Hospitalization HX: Insulin dependent diabetes, CAD, Hypertension, ESRD with kidney transplant, Right BKA, Hysterectomy, Cholecystectomy Surgeries: Yes (Carpal Tunnel, Fistula R arm, amputee-R BKA, back surgery;) Gallbladder, Hysterectomy, Kidney Transplant, Orthopedic Respiratory: No Cardiac: Yes Chronic Edema/Swelling, Heart Attack, Hypertension 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 0oz. [id number]; 30.00 BMI Method:Stated General Appearance: No Apparent Distress, Obese, Other (disheveled appearance and slow to answer questions) HEENT: PERRL/EOMI, Pharynx Normal Respiratory: Chest Non Tender, Lungs Clear, Normal Breath Sounds Cardiovascular: Regular Rate, Rhythm, Normal Peripheral Pulses Gastrointestinal: Normal Bowel Sounds, No Pulsatile Mass, Non Tender, Soft Extremity: Normal Capillary Refill Neurologic/Psychiatric: Alert, Oriented x3 Skin: Warm/Dry Progress/Results/Core Measures Suspected Sepsis SIRS Temperature: Pulse: Respiratory Rate: Laboratory Tests 12/20/22 04:35: White Blood Count 11.6H Blood Pressure / Mean: Laboratory Tests 12/20/22 04:35: Creatinine 1.28, Platelet Count 232, Total Bilirubin 0.3 Results/Orders Lab Results Laboratory Tests Test 12/20/22 04:10 12/20/22 04:35 12/20/22 04:47 12/20/22 05:17 Range/Units Glucometer 65 L 151 H 131 H 70-110 MG/DL White Blood Count 11.6 H 4.3-11.0 10^3/uL Red Blood Count 4.36 3.80-5.11 10^6/uL Hemoglobin 12.5 11.5-16.0 g/dL Hematocrit 40 35-52 % Mean Corpuscular Volume 92 80-99 fL Mean Corpuscular Hemoglobin 29 25-34 pg Mean Corpuscular Hemoglobin Concent 31 L 32-36 g/dL Red Cell Distribution Width 13.7 10.0-14.5 % Platelet Count 232 130-400 10^3/uL Mean Platelet Volume 9.9 9.0-12.2 fL Immature Granulocyte % (Auto) 1 % Neutrophils (%) (Auto) 81 H 42-75 % Lymphocytes (%) (Auto) 12 12-44 % Monocytes (%) (Auto) 5 0-12 % Eosinophils (%) (Auto) 1 0-10 % Basophils (%) (Auto) 0 0-10 % Neutrophils # (Auto) 9.4 H 1.8-7.8 10^3/uL Lymphocytes # (Auto) 1.4 1.0-4.0 10^3/uL Monocytes # (Auto) 0.6 0.0-1.0 10^3/uL Eosinophils # (Auto) 0.1 0.0-0.3 10^3/uL Basophils # (Auto) 0.0 0.0-0.1 10^3/uL Immature Granulocyte # (Auto) 0.1 0.0-0.1 10^3/uL Sodium Level 144 135-145 MMOL/L Potassium Level 4.4 3.6-5.0 MMOL/L Chloride Level 110 H 98-107 MMOL/L Carbon Dioxide Level 22 21-32 MMOL/L Anion Gap 12 5-14 MMOL/L Blood Urea Nitrogen 29 H 7-18 MG/DL Creatinine 1.28 0.60-1.30 MG/DL Estimat Glomerular Filtration Rate 49 BUN/Creatinine Ratio 23 Glucose Level 55 *L 70-105 MG/DL Calcium Level 9.5 8.5-10.1 MG/DL Corrected Calcium 9.7 8.5-10.1 MG/DL Magnesium Level 2.2 1.6-2.4 MG/DL Total Bilirubin 0.3 0.1-1.0 MG/DL Aspartate Amino Transf (AST/SGOT) 12 5-34 U/L Alanine Aminotransferase (ALT/SGPT) 9 0-55 U/L Alkaline Phosphatase 116 40-136 U/L Troponin I < 0.30 <0.30 NG/ML Pro-B-Type Natriuretic Peptide 362.0 H <125.0 PG/ML Total Protein 6.8 6.4-8.2 GM/DL Albumin 3.8 3.2-4.5 GM/DL Lipase 11 8-78 U/L My Orders Orders - ENYARTLEX MD Cbc With Automated Diff (12/20/22 04:10) Magnesium (12/20/22 04:10) Chest 1 View Ap/Pa Only (12/20/22 04:10) Ekg Tracing (12/20/22 04:10) Comprehensive Metabolic Panel (12/20/22 04:10) O2 (12/20/22 04:10) Monitor-Rhythm Ecg Trace Only (12/20/22 04:10) Ed Iv/Invasive Line Start (12/20/22 04:10) Lipase (12/20/22 04:10) Troponin I Fs (12/20/22 04:10) Probnp Fs (12/20/22 04:10) Ct Head Wo (12/20/22 04:10) Accucheck Stat ONCE (12/20/22 04:10) D50w (Emergency) Syringe (Dextrose 50% 5 (12/20/22 04:34) Medications Given in ED Current Medications Medications Dose Ordered Sig/Jose M Route Start Time Stop Time Status Last Admin Dose Admin Dextrose 50 ml STK-MED ONCE .ROUTE 12/20/22 04:34 12/20/22 04:36 DC 12/20/22 04:36 50 ML Vital Signs/I&O 12/20/22 04:04 Temp 36.0 Pulse 81 Resp 18 B/P (MAP) 162/80 (107) Capillary Refill : Progress Note #1: Progress Note Potential diagnosis of hypoglycemia, electrolyte imbalance, pancreatitis, acute renal failure, acute hepatic failure, pneumonia, UTI. Obtain Accu-Chek to see what her sugar is. If it still low will administer an amp of D50. Check basic labs including complete blood count, comprehensive metabolic profile, magnesium, lipase, coagulation factors, proBNP, troponin. Urinalysis to look for signs of infection. Chest x-ray to look for signs of pneumonia. CT head for altered mental status and decreased responsiveness. Progress Note #2: Time: 04:40 Progress Note Initial Accu-Chek was 65. Administer amp of D50 and her blood sugar came up to 151. She was more alert and talkative at that point. Both her and her state that her sugars have been running low every morning recently. The has been checking on her in the morning and helping to bring the sugar up before got too low. This morning she had gotten up to the bathroom and he did not hear her to be able to help or check her sugar. He was unsure how long she had been on the toilet. Will cancel the chest x-ray and CT scan of the head as well as the electrocardiogram is this is looking more like hypoglycemia due to her diabetes and medications rather than pneumonia or heart attack or stroke. 0456 complete blood count showed a white blood cell count at the upper limit of normal at 11.6. Her hemoglobin was low normal at 12.5. Waiting on comprehensive metabolic profile and urinalysis if she is able to provide a specimen. She is eating some crackers with peanut butter and drinking some juice. If her comprehensive metabolic panel was stable and her sugars are staying up we will plan on discharging back home and have them talk to their regular provider about her insulin dosing. Progress Note #3: Time: 05:15 Progress Note Comprehensive metabolic panel did not show any acute electrolyte abnormality to account for her low sugars. Her creatinine was 1.28. She had her glucose staying up after eating some crackers with peanut butter and juice here in the ED. She was at 131. Advised to check with the clinic as they may need to adjust and change some of her medications. Make sure she gets a protein snack with some carbohydrates when she goes to bed to help keep her sugars up overnight. Departure Impression Primary Impression: Hypoglycemia associated with diabetes Disposition: 01 HOME, SELF-CARE Condition: Improved Departure-Patient Inst. Decision time for Depature: 05:21 Referrals: TATUM SARAVIA (PCP/Family) Primary Care Physician Patient Instructions: Low Blood Sugar, Adult ED, Diabetes and diet Add. Discharge Instructions: Check back with your regular provider about your sugars. They may need to adjust your medications to keep you from having low sugars in the morning and overnights. Make sure you are eating some protein and carbs at bedtime snack to help keep your sugar up overnight. LEX OSWALD MD Dec 20, 2022 04:21
[2022-12-20] MEDS ORDERED: DEXTROSE 24 GM ORAL GEL TUBE PO STA (04:32)
[2022-12-20] MEDS: DEXTROSE 50% 50 ML (IMS) SYR ONE (04:36)
[2022-12-20 04:43] LABS: BASOPHILS % (AUTO) 0 % (0-10); EOSINOPHILS # (AUTO) 0.1 10^3/uL (0.0-0.3); EOSINOPHILS % (AUTO) 1 % (0-10); HEMATOCRIT 40 % (35-52); HEMOGLOBIN 12.5 g/dL (11.5-16.0); LYMPHOCYTES # (AUTO) 1.4 10^3/uL (1.0-4.0); LYMPHOCYTES % (AUTO) 12 % (12-44); MEAN CORPUSCULAR HEMOGLOBIN 29 pg (25-34); MEAN CORPUSCULAR HGB CONC 31 g/dL (32-36); MEAN CORPUSCULAR VOLUME 92 fL (80-99); MEAN PLATELET VOLUME 9.9 fL (9.0-12.2); MONOCYTES # (AUTO) 0.6 10^3/uL (0.0-1.0); MONOCYTES % (AUTO) 5 % (0-12); NEUTROPHILS # (AUTO) 9.4 10^3/uL (1.8-7.8); NEUTROPHILS % (AUTO) 81 % (42-75); PLATELET COUNT 232 10^3/uL (130-400); WHITE BLOOD COUNT 11.6 10^3/uL (4.3-11.0)
[2022-12-20 05:13] LABS: BUN/CREATININE RATIO 23; CARBON DIOXIDE 22 MMOL/L (21-32); CHLORIDE 110 MMOL/L (98-107); CREATININE SERUM 1.28 MG/DL (0.60-1.30); GFR ESTIMATED 49; POTASSIUM 4.4 MMOL/L (3.6-5.0); SODIUM 144 MMOL/L (135-145)
[2022-12-20 05:15] LABS: ALKALINE PHOSPHATASE 116 U/L (40-136); BILIRUBIN,TOTAL 0.3 MG/DL (0.1-1.0); CALCIUM 9.5 MG/DL (8.5-10.1); GLUCOSE 55 MG/DL (70-105); MAGNESIUM 2.2 MG/DL (1.6-2.4)
[2022-12-20 05:16] LABS: ALANINE AMINOTRANSFERASE 9 U/L (0-55); ALBUMIN 3.8 GM/DL (3.2-4.5); LIPASE 11 U/L (8-78); TOTAL PROTEIN 6.8 GM/DL (6.4-8.2)
== END 2022-12-20 05:45 | disposition home or self-care (01) ==
LOC: EDUNIT# 04:00 → ER FS 04:02
DX: E11.649 Type 2 diabetes mellitus with hypoglycemia without coma (principal); E11.22 Type 2 diabetes mellitus with diabetic chronic kidney disease; I12.0 Hypertensive chronic kidney disease with stage 5 chronic kidney disease or end stage renal disease; N18.6 End stage renal disease; E66.9 Obesity, unspecified; Z68.30 Body mass index [BMI] 30.0-30.9, adult; Z79.4 Long term (current) use of insulin; Z94.0 Kidney transplant status
CPT/HCPCS: 36415; 80053; 82947; 83690; 83735; 83880; 84484; 85025